=== PATIENT | male | born 1940 ===

== ENCOUNTER 2016-11-20 12:08 | Day surgery (SDC) | payer MEDICARE, OTHER ==
[2016-11-18 11:43] VITALS: BMI 31.6
[2016-11-20] MEDS ORDERED: Propofol 10 mg/ml Inj (20 ML) ONE (13:28)
[2016-11-20] MEDS ORDERED: Lactated Ringer's 1,000 ML IV SCH (13:57)
[2016-11-20] MEDS ORDERED: Sodium Chloride 0.9% 1,000 ML IV SCH (14:00)
[2016-11-20 15:20] VITALS: BP 143/78; PULSE 66; RESP 18; TEMP 97.6; O2SAT 99
== END 2016-11-20 15:30 | disposition short-term general hospital (02) ==
LOC: ENDO 12:08
PROVIDERS: ATTEND Internal Medicine Gastroenterology
DX: D50.9 Iron deficiency anemia, unspecified (principal); K57.30 Diverticulosis of large intestine without perforation or abscess without bleeding; K64.8 Other hemorrhoids; I10 Essential (primary) hypertension; E78.5 Hyperlipidemia, unspecified; M79.89 Other specified soft tissue disorders
CPT/HCPCS: 45378; J2704; J7040; J7120

== ENCOUNTER 2016-11-20 15:35 | Emergency (ER) | payer MEDICARE, OTHER ==
[2016-11-20 15:52] VITALS: BMI 30.6
[2016-11-20 16:08] VITALS: RESP 18; TEMP 98.2; O2SAT 99
--- NOTE | 2016-11-20 16:35 | ED PDOC ---
Arrival/HPI - General Historian: Patient - General Time Seen by Provider: 11/20/16 16:02 - History of Present Illness Narrative History of Present Illness (Text): 11/20/16 16:33 This is a 75Y M with PMH HTN, HLD, DVT, back surgery with residual L leg numbness/tingling here for R swollen leg. Patient was at colonoscopy with Dr. Price. He noticed the patient's leg was swollen and red and send him down to the ED. Patient was being evaluated with colonoscopy for anemia. Patient reports he has not noticed this leg being red. He denies CP, SOB, n/v/d, fever, chills, dysuria or hematuria. (Daphnie Temple) Past Medical History - Provider Review Nursing Documentation Reviewed: Yes - Infectious Disease Hx of Infectious Diseases: None - Tetanus Immunization Tetanus Immunization: Unknown - Cardiac Hx Pacemaker: No - Pulmonary Hx Respiratory Disorders: No - Neurological Hx Paralysis: No - HEENT Hx HEENT Disorder: Yes (WEARS RX GLASSES) - Renal Hx Renal Disorder: No - Endocrine/Metabolic Hx Endocrine Disorders: No - Hematological/Oncological Hx Blood Transfusions: No Hx Blood Transfusion Reaction: No - Integumentary Hx Dermatological Disorder: Yes (LEFT LATERAL UPPER SIDE NEAR ELBOW ABSCESS ) Other/Comment: 08-20-16 BILATERAL LE EDEMA +2,SHINY SKIN FLUSHED SKIN. - Musculoskeletal/Rheumatological Hx Musculoskeletal Disorders: Yes (LEFT FOOT HEEL SPUR) - Gastrointestinal Hx Gastrointestinal Disorders: Yes (CONSTIPATION,HEMORRHOIDS,RECTAL BLEED) - Genitourinary/Gynecological Hx Genitourinary Disorders: Yes Hx Prostate Problems: Yes (BPH) - Psychiatric Hx Emotional Abuse: No Hx Physical Abuse: No Hx Substance Use: No - Past Surgical History Past Surgical History: No Previous - Surgical History Other/Comment: BACK SX - Anesthesia Hx Anesthesia: Yes Hx Anesthesia Reactions: No Hx Malignant Hyperthermia: No - Suicidal Assessment Feels Threatened In Home Enviroment: No Family/Social History - Physician Review Nursing Documentation Reviewed: Yes Family/Social History: Hypertension Smoking Status: Never Smoked Hx Alcohol Use: No Hx Substance Use: No Hx Substance Use Treatment: No Allergies/Home Meds Allergies/Adverse Reactions: Allergies No Known Allergies Allergy (Verified 11/20/16 16:10) Home Medications: Home Meds Medication Instructions Recorded Confirmed Docusate [Colace LIQUID] 100 mg PO BID 05/04/14 11/20/16 Pantoprazole Sodium 40 mg PO DAILY 05/04/14 11/20/16 Naloxegol Oxalate [Movantik] 25 mg PO DAILY 11/18/16 11/20/16 Pregabalin [Lyrica] 75 mg PO TID 11/18/16 11/20/16 oxyCODONE [oxyCODONE Immediate 5 mg PO TID 11/18/16 11/20/16 Release Tab] Review of Systems - Physician Review All systems were reviewed & negative as marked: Yes - Review of Systems Constitutional: Normal. absent: Fevers Eyes: Normal. absent: Vision Changes ENT: Normal. absent: Hearing Changes Respiratory: Normal. absent: SOB, Cough Cardiovascular: Normal. absent: Chest Pain, Palpitations Gastrointestinal: Normal. absent: Abdominal Pain, Diarrhea, Nausea, Vomiting Genitourinary Male: Normal. absent: Dysuria, Frequency, Hematuria Musculoskeletal: Normal. absent: Arthralgias, Back Pain Skin: Other (erythema on R leg ). absent: Rash, Pruritis Neurological: Normal. absent: Headache, Dizziness, Focal Weakness Endocrine: Normal. absent: Diaphoresis Hemo/Lymphatic: Normal. absent: Easy Bleeding Psychiatric: Normal. absent: Anxiety, Depression Physical Exam Vital Signs Reviewed: Yes Temperature: Afebrile Blood Pressure: Normal Pulse: Regular Respiratory Rate: Normal Appearance: Positive for: Well-Appearing, Non-Toxic, Comfortable Pain Distress: None Mental Status: Positive for: Alert and Oriented X 3 - Systems Exam Head: Present: Atraumatic, Normocephalic Pupils: Present: PERRL Extroacular Muscles: Present: EOMI Conjunctiva: Present: Normal Mouth: Present: Moist Mucous Membranes Neck: Present: Normal Range of Motion Respiratory/Chest: Present: Clear to Auscultation, Good Air Exchange. No: Respiratory Distress, Accessory Muscle Use Cardiovascular: Present: Regular Rate and Rhythm, Normal S1, S2. No: Murmurs Abdomen: Present: Normal Bowel Sounds. No: Tenderness, Distention, Peritoneal Signs Back: Present: Normal Inspection Upper Extremity: Present: Normal Inspection. No: Cyanosis, Edema Lower Extremity: Present: Edema, Erythema (R leg ). No: Normal Inspection ( bilateral +3 edema ) Neurological: Present: GCS=15, CN II-XII Intact, Speech Normal. No: Normal Sensory Function Skin: Present: Warm, Dry, Normal Color. No: Rashes Psychiatric: Present: Alert, Oriented x 3, Normal Insight, Normal Concentration Vital Signs Temp Pulse Resp BP Pulse Ox 11/20/16 19:04 75 18 132/65 99 11/20/16 18:00 79 18 134/69 99 11/20/16 16:08 98.2 F 82 18 136/75 99 Medical Decision Making - Lab Interpretations I have reviewed the lab results: Yes Interpretation: No sign. chg./baseline - RAD Interpretation Clinical Data Specialist: Radiologist - EKG Interpretation Interpreted by ED Physician: Yes Type: 12 lead EKG ED Course and Treatment: 11/20/16 16:37 Impression: This is a 75Y M with PMH anemia, DVT, HLD, HTN and back surgery with residual L sided numbness/tingling here for R leg swelling and erythema noticed by Dr. Price during colonoscopy today. Differential Diagnosis included but are not limited to: DVT vs. cellulitis Plan: -- CBC, CMP, U/A, EKG -- Duplex U/S legs bilaterally -- Reassess and disposition Prior Visits: Notes and results from previous visits were reviewed. Progress Note: Labs showed chronic anemia. No DVT seen on U/S. Pt will be d/c home with antibiotics. 11/20/16 18:56 Re-evaluation: Discussed results and plan with patient. Patient understands results and is agreeable with plan. All questions answered. (Daphnie Temple) Patient Seen With Resident: In agreement with resident note which contains more details about the patient. Patient was seen and evaluated with resident. Came up with plan and treatment together. (Abhishek Mckeon DO) - Lab Interpretations Lab Results: 11/20/16 18:15 11/20/16 18:15 Lab Results 11/20/16 18:15: Sodium 140, Potassium 4.2, Chloride 105, Carbon Dioxide 27, Anion Gap 12, BUN 14, Creatinine 0.7, Est GFR ( Amer) > 60, Est GFR (Non- Af Amer) > 60, Random Glucose 120 H, Calcium 9.4, Total Bilirubin 0.4, AST 23, ALT 25, Alkaline Phosphatase 51, Total Protein 7.2, Albumin 4.0, Globulin 3.2, Albumin/Globulin Ratio 1.3 11/20/16 18:15: WBC 5.8, RBC 3.88, Hgb 8.9 L, Hct 29.8 L, MCV 76.8 L, MCH 22.9 L , MCHC 29.9 L, RDW 23.1 H, Plt Count 333, MPV 9.2 11/20/16 18:10: Urine Color Light yellow, Urine Appearance Clear, Urine pH 7.0, Ur Specific Palms 1.010, Urine Protein Negative, Urine Glucose (UA) Negative, Urine Ketones Negative, Urine Blood Negative, Urine Nitrate Negative, Urine Bilirubin Negative, Urine Urobilinogen 0.2, Ur Leukocyte Esterase Negative - RAD Interpretation Narrative RAD Interpretations (Text): 11/20/16 18:35 HISTORY: Leg pain and swelling. Evaluate for DVT PHYSICIAN(S): Celso Barry MD. TECHNIQUE: Duplex sonography and color-flow Doppler with graded compression were used to evaluate the deep venous systems of both lower extremities. The tibial veins are not well seen FINDINGS: The visualized deep venous systems of both lower extremities are sonographically normal and compressible. Normal wave forms and augmentation are seen. There is no sonographic evidence for deep venous thrombosis in the visualized segments of both lower extremities. IMPRESSION: No sonographic evidence for deep venous thrombosis in the visualized segments of both lower extremities. Limited study (Daphnie Temple) Radiology Orders: 11/20/16 16:12 DUPLEX LOWER EXTRM VEIN BILAT [US] Stat - Medication Orders Current Medication Orders: Discontinued Medications Oxycodone/Acetaminophen (Percocet 5/325 Mg Tab) 1 tab PO STAT STA Stop: 11/20/16 17:24 Last Admin: 11/20/16 19:26 Dose: Not Given Non-Admin Reason: Patient Refused Disposition/Present on Arrival - Present on Arrival Any Indicators Present on Arrival: No History of DVT/PE: Yes History of Uncontrolled Diabetes: No Urinary Catheter: No History of Decub. Ulcer: No History Surgical Site Infection Following: None - Disposition Have Diagnosis and Disposition been Completed?: Yes Disposition Time: 18:52 Patient Plan: Discharge - Disposition Diagnosis: Cellulitis Disposition: HOME/ ROUTINE Condition: FAIR Discharge Instructions (ExitCare): Cellulitis (ED) Print Language: TURKMEN Additional Instructions: Mr. Murray, thank you for letting us take care of you today. Your provider was Dr. Bortcosh. You were treated for R leg cellulitis. The emergency medical care you received today was directed at your acute symptoms. If you were prescribed any medication, please fill it and take as directed. It may take several days for your symptoms to resolve. Return to the Emergency Department if your symptoms worsen, do not improve, or if you have any other problems. Please contact your doctor or call one of the physicians/clinics you have been referred to that are listed on the Patient Visit Information form that is included in your discharge packet. Bring any paperwork you were given at discharge with you along with any medications you are taking to your follow up visit. Our treatment cannot replace ongoing medical care by a primary care provider (PCP) outside of the emergency department. Thank you for allowing the [facility] team to be part of your care today. Prescriptions: Cephalexin [cephalexin] 500 mg PO QID #20 cap Sulfamethoxazole/Trimethoprim [Bactrim DS 800 mg-160 mg] 1 tab PO BID #10 tab Referrals: Jim Kirk MD [Primary Care Provider] - Follow up with primary
[2016-11-20] MEDS ORDERED: Oxycodone/Acetaminophen 5/325 mg Tab PO STA (17:23)
[2016-11-20 18:28] LABS: URINE BILIRUBIN NEGATIVE (NEGATIVE); URINE BLOOD NEGATIVE (NEGATIVE); URINE GLUCOSE (UA) NEGATIVE (NEGATIVE); URINE KETONE NEGATIVE (NEGATIVE); URINE LEUKOCYTE ESTERASE NEGATIVE Leu/uL (NEGATIVE); URINE PROTEIN NEGATIVE mg/dL (<30 mg/dL); URINE UROBILINOGEN 0.2 E.U./dL (<1 E.U./dL)
[2016-11-20 18:28] LABS: HEMATOCRIT 29.8 % (42.0-52.0); MEAN CELL VOLUME 76.8 fL (80.0-105.0); MEAN CORPUSCULAR HEMOGLOBIN 22.9 pg (25.0-35.0); MEAN CORPUSCULAR HGB CONC 29.9 g/dl (31.0-37.0); MEAN PLATELET VOLUME 9.2 fl (7.0-11.0); RED CELL DISTRIBUTION WIDTH 23.1 % (11.5-14.5); WHITE BLOOD COUNT 5.8 10^3/ul (4.5-11.0)
--- NOTE | 2016-11-20 18:28 | US ---
HISTORY: Leg pain and swelling. Evaluate for DVT PHYSICIAN(S): Celso Barry MD. TECHNIQUE: Duplex sonography and color-flow Doppler with graded compression were used to evaluate the deep venous systems of both lower extremities. The tibial veins are not well seen FINDINGS: The visualized deep venous systems of both lower extremities are sonographically normal and compressible. Normal wave forms and augmentation are seen. There is no sonographic evidence for deep venous thrombosis in the visualized segments of both lower extremities. IMPRESSION: No sonographic evidence for deep venous thrombosis in the visualized segments of both lower extremities. Limited study
[2016-11-20 18:31] LABS: URINE APPEARANCE CLEAR (CLEAR); URINE COLOR LIGHT YELLOW (YELLOW)
[2016-11-20 18:38] LABS: ALB/GLOB RATIO 1.3 (1.1-1.8); ALKALINE PHOSPHATASE 51 U/L (38-133); ALT/SGPT 25 U/L (7-56); AST/SGOT 23 U/L (15-59); BILIRUBIN,TOTAL 0.4 mg/dL (0.2-1.3); BLOOD UREA NITROGEN 14 mg/dL (7-21); CALCIUM 9.4 mg/dL (8.4-10.5); CARBON DIOXIDE 27 mmol/L (21-33); CHLORIDE 105 mmol/L (98-107); GFR AFRICAN-AMERICAN > 60; GLUCOSE,RANDOM 120 mg/dL (70-110); POTASSIUM 4.2 mmol/L (3.6-5.0); SODIUM 140 mmol/L (132-148); TOTAL PROTEIN 7.2 g/dL (5.8-8.3)
[2016-11-20 19:04] VITALS: BP 132/65; PULSE 75
--- NOTE | 2016-11-21 14:12 | CARD ---
APPROVED REPORT EKG Measurement Heart [id number] MA 170P-1 [id number] <Conclusion> Normal sinus rhythm Left axis deviation Minimal voltage criteria for LVH, may be normal variant ST abnormality, possible digitalis effect Abnormal ECG
== END 2016-11-20 19:43 | disposition home or self-care (01) ==
LOC: ED 15:35
DX: L03.115 Cellulitis of right lower limb (principal); I10 Essential (primary) hypertension; Z86.718 Personal history of other venous thrombosis and embolism

== ENCOUNTER 2017-02-12 11:01 | Day surgery (SDC) | payer MEDICARE, OTHER ==
[2017-01-27 13:51] VITALS: BMI 31.6
[~2017-02-12 11:01] MED LIST: Sodium Chloride 0.9% 1,000 ML IV SCH
[2017-02-12] MEDS ORDERED: Propofol 10 mg/ml Inj (20 ML) ONE (11:46)
[2017-02-12 14:08] VITALS: BP 140/78; PULSE 63; RESP 16; TEMP 98; O2SAT 98
== END 2017-02-12 15:00 | disposition home or self-care (01) ==
LOC: ENDO 11:01
PROVIDERS: ATTEND Internal Medicine Gastroenterology
DX: C7A.010 Malignant carcinoid tumor of the duodenum (principal); K44.9 Diaphragmatic hernia without obstruction or gangrene; R13.10 Dysphagia, unspecified; I10 Essential (primary) hypertension; M48.00 Spinal stenosis, site unspecified
CPT/HCPCS: 43235; J2001; J2704; J3010; J7040 ×2

== ENCOUNTER 2018-10-18 15:01 | Inpatient (IN) | payer OTHER ==
[2018-10-18 15:02] VITALS: BMI 29.9
--- NOTE | 2018-10-18 15:52 | ED PDOC ---
Arrival/HPI - General Chief Complaint: Shortness Of Breath Time Seen by Provider: 10/18/18 15:16 Historian: Patient - History of Present Illness Narrative History of Present Illness (Text): 10/18/18 15:49 77 year old male, whose past medical history includes anemia, HTN, HLD, DVT, back surgery with residual L leg numbness/tingling presents to the emergency department complaining shortness of breath on exertion for the past 5-6 days. Patient reports he is fine when sitting, but when he moves around he begins becoming short of breath. Patient reports he was anxious and took Oxycodone, Lidocaine, and Tramadol 2 hours prior to arrival. Patient denies any fevers, chills, chest pain, abdominal pain, nausea, vomiting, diarrhea, back pain, neck pain, headache, dizziness, or any other complaint. PMD: Dr. Kirk Time/Duration: Other (5-6 days) Symptom Onset: Gradual Symptom Course: Unchanged Activities at Onset: Light Context: Home Past Medical History - Provider Review Nursing Documentation Reviewed: Yes - Infectious Disease Hx of Infectious Diseases: None - Tetanus Immunization Tetanus Immunization: Unknown - Cardiac Hx Pacemaker: No - Pulmonary Hx Respiratory Disorders: No - Neurological Hx Paralysis: No - HEENT Hx HEENT Disorder: Yes (WEARS RX GLASSES) - Renal Hx Renal Disorder: No - Endocrine/Metabolic Hx Endocrine Disorders: No - Hematological/Oncological Hx Blood Transfusions: No - Integumentary Hx Dermatological Disorder: Yes (LEFT LATERAL UPPER SIDE NEAR ELBOW ABSCESS 04-16-14) Other/Comment: 08-20-16 BILATERAL LE EDEMA +2,SHINY SKIN FLUSHED SKIN. - Musculoskeletal/Rheumatological Hx Musculoskeletal Disorders: Yes (LEFT FOOT HEEL SPUR) - Gastrointestinal Hx Gastrointestinal Disorders: Yes (CONSTIPATION,HEMORRHOIDS,RECTAL BLEED) - Genitourinary/Gynecological Hx Genitourinary Disorders: Yes Hx Prostate Problems: Yes (BPH) - Psychiatric Hx Emotional Abuse: No Hx Physical Abuse: No Hx Substance Use: No - Past Surgical History Past Surgical History: No Previous - Surgical History Other/Comment: BACK SX - Anesthesia Hx Anesthesia Reactions: No Hx Malignant Hyperthermia: No - Suicidal Assessment Feels Threatened In Home Enviroment: No Family/Social History - Physician Review Nursing Documentation Reviewed: Yes Family/Social History: No Known Family HX Smoking Status: Never Smoked Hx Alcohol Use: No Hx Substance Use: No Hx Substance Use Treatment: No Allergies/Home Meds Allergies/Adverse Reactions: Allergies No Known Allergies Allergy (Verified 11/20/16 16:10) Home Medications: Home Meds Medication Instructions Recorded Confirmed Pregabalin [Lyrica] 150 mg PO TID 11/18/16 10/19/18 oxyCODONE [oxyCODONE Immediate 10 mg PO TID 11/18/16 10/18/18 Release Tab] Furosemide [Lasix] 20 mg PO QOTHERDAY 08/18/17 10/18/18 Dutasteride [Avodart] 0.5 mg PO DAILY 10/18/18 10/18/18 Hydroxyzine HCl 25 mg PO DAILY 10/18/18 10/18/18 Lidocaine 5% [Lidoderm] 5 TP 10/18/18 Lubiprostone [Amitiza] 24 mcg PO DAILY 10/18/18 10/18/18 amLODIPine [Norvasc] 2.5 mg PO DAILY 10/18/18 10/18/18 Review of Systems - Physician Review All systems were reviewed & negative as marked: Yes - Review of Systems Constitutional: absent: Fevers, Other (chills) Respiratory: SOB Cardiovascular: absent: Chest Pain Gastrointestinal: absent: Abdominal Pain, Diarrhea, Nausea, Vomiting Genitourinary Male: absent: Dysuria, Frequency, Hematuria Musculoskeletal: absent: Back Pain, Neck Pain Neurological: absent: Headache, Dizziness, Other (saddle anesthia ) Physical Exam Vital Signs Reviewed: Yes Vital Signs Temp Pulse Resp BP Pulse Ox 10/18/18 15:15 98.4 F 88 20 106/54 L 95 Temperature: Afebrile Blood Pressure: Hypotensive Pulse: Regular Respiratory Rate: Normal Appearance: Positive for: Well-Appearing, Non-Toxic, Comfortable Pain Distress: None Mental Status: Positive for: Alert and Oriented X 3 - Systems Exam Head: Present: Atraumatic, Normocephalic Pupils: Present: PERRL Extroacular Muscles: Present: EOMI Conjunctiva: Present: Normal Mouth: Present: Moist Mucous Membranes Neck: Present: Normal Range of Motion Respiratory/Chest: Present: Clear to Auscultation, Good Air Exchange. No: Respiratory Distress, Accessory Muscle Use Cardiovascular: Present: Regular Rate and Rhythm, Murmurs (systolic murmur), Normal S1, S2 Abdomen: No: Tenderness, Distention, Peritoneal Signs Back: Present: Normal Inspection Upper Extremity: Present: Normal Inspection. No: Cyanosis, Edema Lower Extremity: Present: Edema (bilateral LE ), Erythema (to the distal right leg (normal)) Neurological: Present: GCS=15, CN II-XII Intact, Speech Normal Skin: Present: Warm, Dry, Normal Color. No: Rashes Psychiatric: Present: Alert, Oriented x 3, Normal Insight, Normal Concentration Medical Decision Making ED Course and Treatment: 10/18/18 15:45 Impression: 77 year old male presents complaining of dyspnea on exertion for the past 5-6 days. Plan: -- EKG -- Labs -- CXR -- reassess and dispo Prior Visits: Notes and results from previous visits were reviewed. Progress Notes: EKG shows NSR 90BPM with no LAD, No ST elevations, PACs. No significant changes changes on 11/20/16. As read by me. Chest X-ray Dictator : Blayne Harry MD Report Date : 10/18/2018 16:32:28 IMPRESSION: No active disease. Results of w/u and plan to admit d/w patient. Patient agreeable w/POC and provided written consent for blood transfusion. 10/18/18 18:50 Rectal Exam: Brown stool. Guaiac negative. [id number] EXP 05/1610/18/18 18:[address] Kirk who is aware and agrees with the plan. Accepts patient into his service and request Dr. Treadwell and GI Dr. Price for consult. - Lab Interpretations I have reviewed the lab results: Yes - RAD Interpretation Radiology Orders: 10/18/18 15:47 CHEST PORTABLE [RAD] Stat Interventional Sale Consultant: Radiologist - EKG Interpretation Interpreted by ED Physician: Yes Type: 12 lead EKG - Scribe Statement The provider has reviewed the documentation as recorded by the Sherri Bahena Provider Scribe Attestation: All medical record entries made by the Scribe were at my direction and personally dictated by me. I have reviewed the chart and agree that the record accurately reflects my personal performance of the history, physical exam, medical decision making, and the department course for this patient. I have also personally directed, reviewed, and agree with the discharge instructions and disposition. Disposition/Present on Arrival - Present on Arrival Any Indicators Present on Arrival: Yes History of DVT/PE: Yes History of Uncontrolled Diabetes: No Urinary Catheter: No History of Decub. Ulcer: No History Surgical Site Infection Following: None - Disposition Have Diagnosis and Disposition been Completed?: Yes Diagnosis: Anemia, STRANGE (dyspnea on exertion) Disposition: HOSPITALIZED Disposition Time: 18:16 Patient Plan: Admission Condition: STABLE
--- NOTE | 2018-10-18 16:35 | RAD ---
Date of service: 10/18/2018 HISTORY: STRANGE COMPARISON: 08/20/2016 TECHNIQUE: 1 view obtained. FINDINGS: LUNGS: No active pulmonary disease. PLEURA: No significant pleural effusion identified, no pneumothorax apparent. CARDIOVASCULAR: Aortic calcification Mild cardiomegaly no pulmonary vascular congestion. OSSEOUS STRUCTURES: No significant abnormalities. VISUALIZED UPPER ABDOMEN: Normal. OTHER FINDINGS: None. IMPRESSION: No active disease.
[2018-10-18 17:12] LABS: BASO # 0.03 K/mm3 (0.0-2.0); BASO % 0.5 % (0.0-3.0); EOS # 0.2 (0.0-0.7); EOS % 2.9 % (1.5-5.0); LYMPH # 1.6 (1.2-3.4); LYMPH % 26.1 % (22.0-35.0); MEAN CELL VOLUME 60.1 fl (80.0-105.0); MEAN CORPUSCULAR HEMOGLOBIN 14.4 pg (25.0-35.0); MEAN CORPUSCULAR HGB CONC 23.9 g/dl (31.0-37.0); MEAN PLATELET VOLUME 9.4 fl (7.0-11.0); MONO # 0.9 (0.1-0.6); MONO % 14.3 % (1.0-6.0); RBC 3.48 10^6/uL (3.5-6.1); RED CELL DISTRIBUTION WIDTH 20.7 % (11.5-14.5); WHITE BLOOD COUNT 6.2 10^3/uL (4.5-11.0)
[2018-10-18 17:20] LABS: BLOOD UREA NITROGEN 17 mg/dL (7-21); CALCIUM 8.6 mg/dL (8.4-10.5); GFR NON-AFRICAN AMERICAN > 60
[2018-10-18 17:31] LABS: B-TYPE NATRIURETIC PEPTIDE 321 pg/mL (0-450); TROPONIN I < 0.01 ng/mL
--- NOTE | 2018-10-18 18:15 | CARD ---
APPROVED REPORT Date of service: 10/18/2018 EKG Measurement Heart [id number] <Conclusion> Sinus rhythm with premature atrial complexes with aberrant conduction Left anterior hemi_Block Non Specific ST-T Changes. Abnormal ECG
[2018-10-18] MEDS: oxyCODONE 10 mg Immediate Release Tab PO SCH (23:46)
[2018-10-19 06:45] LABS: MEAN CELL VOLUME 64.2 fl (80.0-105.0); MEAN CORPUSCULAR HEMOGLOBIN 17.5 pg (25.0-35.0); MEAN CORPUSCULAR HGB CONC 27.2 g/dl (31.0-37.0); MEAN PLATELET VOLUME 9.1 fl (7.0-11.0); RBC 3.72 10^6/uL (3.5-6.1); WHITE BLOOD COUNT 5.5 10^3/uL (4.5-11.0)
[2018-10-19] MEDS: oxyCODONE 10 mg Immediate Release Tab PO SCH ×3 (06:52→22:30)
[2018-10-19 06:56] LABS: HEMOGLOBIN 6.5 g/dL (14.0-18.0)
--- NOTE | 2018-10-19 09:23 | CP.PCM.CON ---
<Surya Beltrán - Last Filed: 10/19/18 14:46> History of Present Illness - History of Present Illness History of Present Illness: Surya Beltrán PGY2 Heme/Onc Consult Note for Dr. 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 Patient states for the last several days he has felt shortness of breath when ambulating. Patient denies any blood in the stool at home or recent travel. Says he feels better today. Heme/Onc Consulted for history of carcinoid and anemia. He also denies heavy NSAID use. Denies chest pain, abdominal pain, nausea, vomiting, fever, chills but states he had a bowel movement with bright red blood today. PMHx: above PSx: back sx 2013 Soc: denies ETOH, Drugs, 20yr hx of second hand smoke exposure Allergies: denies Home Meds: as per AUG PMD: Yelena Review of Systems - Review of Systems Review of Systems: Negative except that which is mentioned in HPI Past Patient History - Infectious Disease Hx of Infectious Diseases: None - Tetanus Immunizations Tetanus Immunization: Unknown - Past Medical History & Family History Past Medical History?: Yes - Past Social History Smoking Status: Never Smoked - CARDIAC Hx Cardiac Disorders: Yes Hx Cardia Arrhythmia: Yes Hx Hypercholesterolemia: Yes Hx Hypertension: Yes Hx Pacemaker: No Hx Peripheral Vascular Disease: Yes - PULMONARY Hx Respiratory Disorders: No - NEUROLOGICAL Hx Neurological Disorder: Yes Other/Comment: PARESTHESIA TO BILATERAL LE,LEFT FOOT HEEL SPUR. MULTIPLE EPIDURALS - HEENT Hx HEENT Problems: Yes (WEARS RX GLASSES) - RENAL Hx Chronic Kidney Disease: No - ENDOCRINE/METABOLIC Hx Endocrine Disorders: No - HEMATOLOGICAL/ONCOLOGICAL Hx Blood Disorders: Yes Hx Anemia: Yes (tranfusion) - INTEGUMENTARY Hx Dermatological Problems: Yes Other/Comment: BILATERAL LE EDEMA +2,SHINY SKIN FLUSHED SKIN. - MUSCULOSKELETAL/RHEUMATOLOGICAL Hx Back Pain: Yes Hx Degenerative Joint Disease: Yes Hx Falls: No Hx Herniated Disk: Yes Hx Spinal Stenosis: Yes Other/Comment: recent back surgery - GASTROINTESTINAL Hx Gastrointestinal Disorders: Yes (CONSTIPATION,HEMORRHOIDS,RECTAL BLEED) - GENITOURINARY/GYNECOLOGICAL Hx Genitourinary Disorders: Yes Hx Prostate Problems: Yes (BPH) - PSYCHIATRIC Hx Emotional Abuse: No Hx Physical Abuse: No Hx Substance Use: No - SURGICAL HISTORY Other/Comment: BACK SX - ANESTHESIA Hx Anesthesia Reactions: No Hx Malignant Hyperthermia: No Meds Allergies/Adverse Reactions: Allergies Allergy/AdvReac Type Severity Reaction Status Date / Time No Known Allergies Allergy Verified 11/20/16 16:10 - Medications Medications: Current Medications Amlodipine Besylate (Norvasc) 2.5 mg PO DAILY [facility] Finasteride (Proscar) 5 mg PO DAILY [facility] Furosemide (Lasix) 20 mg PO QOTHERDAY [facility] Home Med (Home Med) 1 unit PO DAILY [facility] Home Med (Home Med) 1 unit PO DAILY [facility] Hydroxyzine HCl (Atarax) 25 mg PO DAILY [facility] Lidocaine (Lidoderm) 1 ea TD DAILY [facility] Oxycodone HCl (Oxycodone Immediate Release Tab) 10 mg PO Q8H [facility] Last Admin: 10/19/18 06:52 Dose: 10 mg Pantoprazole Sodium (Protonix Inj) 40 mg IVP DAILY [facility] Pregabalin (Lyrica) 75 mg PO TID [facility] Last Admin: 10/19/18 00:12 Dose: 75 mg Tamsulosin HCl (Flomax) 0.4 mg PO DAILY [facility] Tramadol HCl (Ultram) 50 mg PO TID PRN PRN Reason: Pain, moderate (4-7) Physical Exam - Constitutional Appears: Non-toxic, No Acute Distress - Eye Exam Eye Exam: EOMI, Normal appearance - ENT Exam ENT Exam: Mucous Membranes Moist - Respiratory Exam Respiratory Exam: Clear to Auscultation Bilateral, NORMAL BREATHING PATTERN - Cardiovascular Exam Cardiovascular Exam: +S1, +S2 - GI/Abdominal Exam GI & Abdominal Exam: Normal Bowel Sounds. absent: Tenderness - Extremities Exam Extremities exam: Positive for: pedal pulses present. Negative for: joint swelling - Neurological Exam Neurological exam: Alert, Oriented x3 Results - Vital Signs Recent Vital Signs: Last Vital Signs Temp 98.4 F 10/19/18 05:14 Pulse 98 H 10/19/18 05:14 Resp 20 10/19/18 05:14 BP 126/64 10/19/18 05:14 Pulse Ox 99 10/18/18 20:12 - Labs Result Diagrams: 10/19/18 12:45 10/19/18 06:30 Labs: Laboratory Results - last 24 hr 10/18/18 10/18/18 10/18/18 16:38 16:38 18:49 WBC 6.2 RBC 3.48 L Hgb 5.0 L* D Hct 20.9 L* MCV 60.1 L D MCH 14.4 L MCHC 23.9 L RDW 20.7 H Plt Count 405 MPV 9.4 Neut % (Auto) 56.2 Lymph % (Auto) 26.1 [place] % (Auto) 14.3 H Eos % (Auto) 2.9 Baso % (Auto) 0.5 Lymph # (Auto) 1.6 [place] # (Auto) 0.9 H Eos # (Auto) 0.2 Baso # (Auto) 0.03 Absolute Neuts (auto) 3.47 Sodium 139 Potassium 4.5 Chloride 105 Carbon Dioxide 23 Anion Gap 15 BUN 17 Creatinine 0.7 L Est GFR ( Amer) > 60 Est GFR (Non-Af Amer) > 60 Random Glucose 96 Calcium 8.6 Magnesium 1.9 Lactate Dehydrogenase 319 L Total Creatine Kinase 48 Troponin I < 0.01 NT-Pro-B Natriuret Pep 321 Blood Type A NEGATIVE Antibody Screen Negative Crossmatch See Detail BBK History Checked Patient has bt 10/19/18 06:10 WBC 5.5 RBC 3.72 Hgb 6.5 L* Hct 23.9 L MCV 64.2 L D MCH 17.5 L MCHC 27.2 L RDW 25.0 H Plt Count 349 MPV 9.1 Neut % (Auto) Lymph % (Auto) [place] % (Auto) Eos % (Auto) Baso % (Auto) Lymph # (Auto) [place] # (Auto) Eos # (Auto) Baso # (Auto) Absolute Neuts (auto) Sodium Potassium Chloride Carbon Dioxide Anion Gap BUN Creatinine Est GFR ( Amer) Est GFR (Non-Af Amer) Random Glucose Calcium Magnesium Lactate Dehydrogenase Total Creatine Kinase Troponin I NT-Pro-B Natriuret Pep Blood Type Antibody Screen Crossmatch BBK History Checked Assessment & Plan - Assessment and Plan (Free Text) Plan: Anemia with history for carcinoid -Hgb of 5.0 on admission -s/p 2 units PRBC, with plan for 2 more to be transfused -fibrinogen, fibrin split products pending -5-HIAA and tumor markers -Octreotide Scan -CT ChestAbdPelvis pending -GI consulted, follow recs -Monitor H&H, transfuse as needed <Sindy Treadwell P - Last Filed: 10/22/18 12:29> Meds - Medications Medications: Current Medications Amlodipine Besylate (Norvasc) 2.5 mg PO DAILY [facility] Last Admin: 10/22/18 11:06 Dose: 2.5 mg Finasteride (Proscar) 5 mg PO DAILY [facility] Last Admin: 10/22/18 11:06 Dose: 5 mg Furosemide (Lasix) 20 mg PO QOTHERDAY [facility] Last Admin: 10/22/18 11:06 Dose: 20 mg Home Med (Home Med) 1 unit PO DAILY [facility] Last Admin: 10/21/18 10:06 Dose: Not Given Home Med (Home Med) 1 unit PO DAILY [facility] Last Admin: 10/21/18 10:06 Dose: Not Given Hydroxyzine HCl (Atarax) 25 mg PO DAILY [facility] Last Admin: 10/21/18 11:11 Dose: Not Given Lidocaine (Lidoderm) 1 ea TD DAILY [facility] Last Admin: 10/22/18 11:05 Dose: 1 ea Ondansetron HCl (Zofran Inj) 4 mg IVP Q6H PRN PRN Reason: Nausea/Vomiting Oxycodone HCl (Oxycodone Immediate Release Tab) 10 mg PO Q8H [facility] Last Admin: 10/22/18 06:22 Dose: 10 mg Pantoprazole Sodium (Protonix Inj) 40 mg IVP Q12 [facility] Last Admin: 10/21/18 22:27 Dose: 40 mg Pregabalin (Lyrica) 150 mg PO TID [facility] Last Admin: 10/22/18 11:05 Dose: 150 mg Tamsulosin HCl (Flomax) 0.4 mg PO DAILY [facility] Last Admin: 10/22/18 11:06 Dose: 0.4 mg Tramadol HCl (Ultram) 50 mg PO TID PRN PRN Reason: Pain, moderate (4-7) Last Admin: 10/22/18 02:00 Dose: 50 mg Results - Vital Signs Recent Vital Signs: Last Vital Signs Temp 98 F 10/22/18 06:00 Pulse 90 10/22/18 06:00 Resp 20 10/22/18 06:00 BP 142/68 10/22/18 11:06 Pulse Ox 93 L 10/22/18 06:00 - Labs Result Diagrams: 10/21/18 11:00 10/21/18 11:00 Attending/Attestation - Attestation I have personally seen and examined this patient.: Yes I have fully participated in the care of the patient.: Yes I have reviewed all pertinent clinical information: Yes
[2018-10-19 09:29] LABS: BLOOD UREA NITROGEN 16 mg/dL (7-21); CALCIUM 8.2 mg/dL (8.4-10.5); GFR NON-AFRICAN AMERICAN > 60
[2018-10-19] MEDS ORDERED: Home Med 1 UNIT PO SCH (10:00)
[2018-10-19] MEDS: Lidocaine 5% Patch TD SCH (11:00)
--- NOTE | 2018-10-19 11:47 | CP.PCM.CON ---
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 Pt has been having STRANGE for the past 8 days. Pt reports having had chronic anemia with Hg reading in the 9s and 8s, but was found to have a Hg of [address] Kirk[address] office, prompting him to be admitted and transfused 2u of PRBCs. Pt is feeling better today since the transfusions, no longer dysnpic/fatigued. 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 Octreotide Scan: Neg 2017 EGD: 15mm Duodenal bulb mass 2017 Colonoscopy: hemorrhoids, diverticulosis ROS: Pos+ SOB, STRANGE, back pain (chronic), leg swelling (chronic), LE numbness (chronic) Neg- CP, FC, NV, weight changes, night sweats, early satiety, flushing, tremors, syncope, falls, diarrhea, non compliance, prev abd sx, denies NSAIDs PMHx: above PSx: back sx 2013 Soc: denies ETOH, Drugs, 20yr hx of second hand smoke exposure Allergies: denies Home Rx: Lyrica 150 Percocet 10 Tramadol 100 Recently stopped ASA 81 Flomax Prostat PMD: Yelena, GI: Dee, Heme: Eben Son is Physician, proxy Review of Systems - Review of Systems All systems: reviewed and no additional remarkable complaints except (as per HPI) Past Patient History - Infectious Disease Hx of Infectious Diseases: None - Tetanus Immunizations Tetanus Immunization: Unknown - Past Medical History & Family History Past Medical History?: Yes - Past Social History Smoking Status: Never Smoked - CARDIAC Hx Cardiac Disorders: Yes Hx Cardia Arrhythmia: Yes Hx Hypercholesterolemia: Yes Hx Hypertension: Yes Hx Pacemaker: No Hx Peripheral Vascular Disease: Yes - PULMONARY Hx Respiratory Disorders: No - NEUROLOGICAL Hx Neurological Disorder: Yes Other/Comment: PARESTHESIA TO BILATERAL LE,LEFT FOOT HEEL SPUR. MULTIPLE EPIDURALS - HEENT Hx HEENT Problems: Yes (WEARS RX GLASSES) - RENAL Hx Chronic Kidney Disease: No - ENDOCRINE/METABOLIC Hx Endocrine Disorders: No - HEMATOLOGICAL/ONCOLOGICAL Hx Blood Disorders: Yes Hx Anemia: Yes (tranfusion) - INTEGUMENTARY Hx Dermatological Problems: Yes Other/Comment: BILATERAL LE EDEMA +2,SHINY SKIN FLUSHED SKIN. - MUSCULOSKELETAL/RHEUMATOLOGICAL Hx Back Pain: Yes Hx Degenerative Joint Disease: Yes Hx Falls: No Hx Herniated Disk: Yes Hx Spinal Stenosis: Yes Other/Comment: recent back surgery - GASTROINTESTINAL Hx Gastrointestinal Disorders: Yes (CONSTIPATION,HEMORRHOIDS,RECTAL BLEED) - GENITOURINARY/GYNECOLOGICAL Hx Genitourinary Disorders: Yes Hx Prostate Problems: Yes (BPH) - PSYCHIATRIC Hx Emotional Abuse: No Hx Physical Abuse: No Hx Substance Use: No - SURGICAL HISTORY Other/Comment: BACK SX - ANESTHESIA Hx Anesthesia Reactions: No Hx Malignant Hyperthermia: No Meds Allergies/Adverse Reactions: Allergies Allergy/AdvReac Type Severity Reaction Status Date / Time No Known Allergies Allergy Verified 11/20/16 16:10 - Medications Medications: Current Medications Amlodipine Besylate (Norvasc) 2.[address] [facility] Last Admin: 10/19/18 10:59 Dose: 2.5 mg Finasteride (Proscar) [address] [facility] Last Admin: 10/19/18 10:59 Dose: 5 mg Furosemide (Lasix) [address] [facility] Home Med (Home Med) [address] [facility] Home Med (Home Med) [address] [facility] Hydroxyzine HCl (Atarax) [address] [facility] Last Admin: 10/19/18 10:59 Dose: 25 mg Lidocaine (Lidoderm) [address] [facility] Last Admin: 10/19/18 11:00 Dose: Not Given Oxycodone HCl (Oxycodone Immediate Release Tab) [address] [facility] Last Admin: 10/19/18 06:52 Dose: 10 mg Pantoprazole Sodium (Protonix Inj) [address] [facility] Last Admin: 10/19/18 11:00 Dose: 40 mg Pregabalin (Lyrica) [address] [facility] Last Admin: 10/19/18 10:59 Dose: 75 mg Tamsulosin HCl (Flomax) 0.4 mg PO DAILY [facility] Last Admin: 10/19/18 10:59 Dose: 0.4 mg Tramadol HCl (Ultram) 50 mg PO TID PRN PRN Reason: Pain, moderate (4-7) Physical Exam - Constitutional Appears: Non-toxic, No Acute Distress - Head Exam Head Exam: ATRAUMATIC, NORMOCEPHALIC - Eye Exam Eye Exam: EOMI, Normal appearance. absent: Scleral icterus Additional comments: conjuctiva pale - ENT Exam ENT Exam: Mucous Membranes Moist - Respiratory Exam Respiratory Exam: Clear to Auscultation Bilateral. absent: Rales, Wheezes - Cardiovascular Exam Cardiovascular Exam: +S1, +S2, Systolic Murmur () - GI/Abdominal Exam GI & Abdominal Exam: Soft (obese abdomen, no surgical scars seen, no ventral/umbilical hernias appreciated). absent: Firm, Guarding, Organomegaly, Rebound, Tenderness - Extremities Exam Extremities exam: Positive for: normal capillary refill, pedal edema (+2 to proximal gates), pedal pulses present. Negative for: full ROM (knees limited in flexion) - Back Exam Back exam: absent: CVA tenderness (L), CVA tenderness (R), tenderness - Neurological Exam Neurological exam: Alert, Oriented x3 - Psychiatric Exam Psychiatric exam: Normal Affect, Normal Mood - Skin Skin Exam: Normal Color, Warm Results - Vital Signs Recent Vital Signs: Last Vital Signs Temp 98.4 F 10/19/18 05:14 Pulse 98 H 10/19/18 05:14 Resp 20 10/19/18 05:14 BP 126/64 10/19/18 10:59 Pulse Ox 99 10/18/18 20:12 - Labs Result Diagrams: 10/19/18 06:10 10/19/18 06:30 Labs: Laboratory Results - last 24 hr 10/18/18 10/18/18 10/18/18 16:38 16:38 18:49 WBC 6.2 RBC 3.48 L Hgb 5.0 L* D Hct 20.9 L* MCV 60.1 L D MCH 14.4 L MCHC 23.9 L RDW 20.7 H Plt Count 405 MPV 9.4 Neut % (Auto) 56.2 Lymph % (Auto) 26.1 [place] % (Auto) 14.3 H Eos % (Auto) 2.9 Baso % (Auto) 0.5 Lymph # (Auto) 1.6 [place] # (Auto) 0.9 H Eos # (Auto) 0.2 Baso # (Auto) 0.03 Absolute Neuts (auto) 3.47 Sodium 139 Potassium 4.5 Chloride 105 Carbon Dioxide 23 Anion Gap 15 BUN 17 Creatinine 0.7 L Est GFR ( Amer) > 60 Est GFR (Non-Af Amer) > 60 Random Glucose 96 Calcium 8.6 Magnesium 1.9 Lactate Dehydrogenase 319 L Total Creatine Kinase 48 Troponin I < 0.01 NT-Pro-B Natriuret Pep 321 Blood Type A NEGATIVE Antibody Screen Negative Crossmatch See Detail BBK History Checked Patient has bt 10/19/18 10/19/18 06:10 06:30 WBC 5.5 RBC 3.72 Hgb 6.5 L* Hct 23.9 L MCV 64.2 L D MCH 17.5 L MCHC 27.2 L RDW 25.0 H Plt Count 349 MPV 9.1 Neut % (Auto) Lymph % (Auto) [place] % (Auto) Eos % (Auto) Baso % (Auto) Lymph # (Auto) [place] # (Auto) Eos # (Auto) Baso # (Auto) Absolute Neuts (auto) Sodium 139 Potassium 4.2 Chloride 105 Carbon Dioxide 26 Anion Gap 12 BUN 16 Creatinine 0.7 L Est GFR ( Amer) > 60 Est GFR (Non-Af Amer) > 60 Random Glucose 79 Calcium 8.2 L Magnesium Lactate Dehydrogenase Total Creatine Kinase Troponin I NT-Pro-B Natriuret Pep Blood Type Antibody Screen Crossmatch BBK History Checked Assessment & Plan - Assessment and Plan (Free Text) Assessment: 77M pmhx of 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 Plan: Carcinoid Tumor- duodenal bulb -f/u 5-HIAA and tumor markers -f/u Octreotide Scan -f/u CT ChestAbdPelv: eval for mets -f/u GI Recs: recommending EGD for reassessment of tumor -Monitor H&H, transfuse as recommended by HemeOnc [facility] PGY1 d/w Dr Oliveira
[2018-10-19] MEDS ORDERED: Barium Sulfate Susp 2.1% w/v, 2.0% w/w 450 mL Bottle PO ONE (12:14)
[2018-10-19 13:09] LABS: MEAN CELL VOLUME 64.2 fl (80.0-105.0); MEAN CORPUSCULAR HEMOGLOBIN 17.3 pg (25.0-35.0); MEAN CORPUSCULAR HGB CONC 26.9 g/dl (31.0-37.0); MEAN PLATELET VOLUME 9.4 fl (7.0-11.0); RBC 3.88 10^6/uL (3.5-6.1); RED CELL DISTRIBUTION WIDTH 24.9 % (11.5-14.5); WHITE BLOOD COUNT 6.1 10^3/uL (4.5-11.0)
[2018-10-19 13:29] LABS: HEMOGLOBIN 6.7 g/dL (14.0-18.0)
[2018-10-19] MEDS: AMITIZA 24 MG PO SCH (16:05)
[2018-10-19] MEDS: AVODART 0.5 MG PO SCH (16:06)
--- NOTE | 2018-10-19 16:17 | CP.PCM.CON ---
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 He states over the last several days he has had progressively worse shortness of breath with exertion. He states he is in his normal state of health when he is not exerting self. He denies any weight loss, dysphagia, chest pain, melena, abdominal pain nor hematochezia. He denies any alcohol use nor blood thinner use.he states he is intermittently constipated sometimes going 3-4 days without a bowel movement. However, he states his last movement was earlier this morning and was formed brown without any signs of bleeding. 12 point review of systems negative other than stated above Medical history: See above Surgical history:IVC filter, back surgery (complicated by residual left-sided numbness/tingling) Medications: Reviewed in chart Family history: Sister with breast cancer Social history: Denied 3 Allergies: No known drug allergies EGD 02/12/17 small hiatal hernia, submucosal ulcerated mass in the bulb previous biopsies of the area positive for well-differentiated neuroendocrine tumor Colonoscopy 11/20/16: Diverticulosis and internal hemorrhoids Past Patient History - Infectious Disease Hx of Infectious Diseases: None - Tetanus Immunizations Tetanus Immunization: Unknown - Past Medical History & Family History Past Medical History?: Yes - Past Social History Smoking Status: Never Smoked - CARDIAC Hx Cardiac Disorders: Yes Hx Cardia Arrhythmia: Yes Hx Hypercholesterolemia: Yes Hx Hypertension: Yes Hx Pacemaker: No Hx Peripheral Vascular Disease: Yes - PULMONARY Hx Respiratory Disorders: No - NEUROLOGICAL Hx Neurological Disorder: Yes Other/Comment: PARESTHESIA TO BILATERAL LE,LEFT FOOT HEEL SPUR. MULTIPLE EPIDURALS - HEENT Hx HEENT Problems: Yes (WEARS RX GLASSES) - RENAL Hx Chronic Kidney Disease: No - ENDOCRINE/METABOLIC Hx Endocrine Disorders: No - HEMATOLOGICAL/ONCOLOGICAL Hx Blood Disorders: Yes Hx Anemia: Yes (tranfusion) - INTEGUMENTARY Hx Dermatological Problems: Yes Other/Comment: BILATERAL LE EDEMA +2,SHINY SKIN FLUSHED SKIN. - MUSCULOSKELETAL/RHEUMATOLOGICAL Hx Back Pain: Yes Hx Degenerative Joint Disease: Yes Hx Falls: No Hx Herniated Disk: Yes Hx Spinal Stenosis: Yes Other/Comment: recent back surgery - GASTROINTESTINAL Hx Gastrointestinal Disorders: Yes (CONSTIPATION,HEMORRHOIDS,RECTAL BLEED) - GENITOURINARY/GYNECOLOGICAL Hx Genitourinary Disorders: Yes Hx Prostate Problems: Yes (BPH) - PSYCHIATRIC Hx Emotional Abuse: No Hx Physical Abuse: No Hx Substance Use: No - SURGICAL HISTORY Other/Comment: BACK SX - ANESTHESIA Hx Anesthesia Reactions: No Hx Malignant Hyperthermia: No Meds Allergies/Adverse Reactions: Allergies Allergy/AdvReac Type Severity Reaction Status Date / Time No Known Allergies Allergy Verified 11/20/16 16:10 - Medications Medications: Current Medications Amlodipine Besylate (Norvasc) 2.5 mg PO DAILY [facility] Last Admin: 10/19/18 10:59 Dose: 2.5 mg Finasteride (Proscar) 5 mg PO DAILY [facility] Last Admin: 10/19/18 10:59 Dose: 5 mg Furosemide (Lasix) 20 mg PO QOTHERDAY [facility] Home Med (Home Med) 1 unit PO DAILY [facility] Last Admin: 10/19/18 16:06 Dose: Not Given Home Med (Home Med) 1 unit PO DAILY [facility] Last Admin: 10/19/18 16:05 Dose: Not Given Hydroxyzine HCl (Atarax) 25 mg PO DAILY [facility] Last Admin: 10/19/18 10:59 Dose: 25 mg Lidocaine (Lidoderm) 1 ea TD DAILY [facility] Last Admin: 10/19/18 11:00 Dose: Not Given Oxycodone HCl (Oxycodone Immediate Release Tab) 10 mg PO Q8H [facility] Last Admin: 10/19/18 06:52 Dose: 10 mg Pantoprazole Sodium (Protonix Inj) 40 mg IVP DAILY [facility] Last Admin: 10/19/18 11:00 Dose: 40 mg Pregabalin (Lyrica) 150 mg PO TID [facility] Tamsulosin HCl (Flomax) 0.4 mg PO DAILY [facility] Last Admin: 10/19/18 10:59 Dose: 0.4 mg Tramadol HCl (Ultram) 50 mg PO TID PRN PRN Reason: Pain, moderate (4-7) Physical Exam - Constitutional Appears: Well, No Acute Distress - Head Exam Head Exam: ATRAUMATIC, NORMAL INSPECTION - Eye Exam Eye Exam: EOMI. absent: Scleral icterus - ENT Exam ENT Exam: Mucous Membranes Moist. absent: Mucous Membranes Dry - Respiratory Exam Respiratory Exam: Clear to Auscultation Bilateral, NORMAL BREATHING PATTERN. absent: Accessory Muscle Use - Cardiovascular Exam Cardiovascular Exam: REGULAR RHYTHM, RRR - GI/Abdominal Exam GI & Abdominal Exam: Normal Bowel Sounds, Soft. absent: Bruit, Diminished Bowel Sounds, Distended, Firm, Guarding, Hernia, Mass, Organomegaly, Pulsatile Mass, Rebound, Rigid, Tenderness - Extremities Exam Extremities exam: Positive for: normal inspection, pedal edema (+1 bilateral lower extremity edema) - Neurological Exam Neurological exam: Alert, Oriented x3 - Psychiatric Exam Psychiatric exam: Normal Affect, Normal Mood - Skin Skin Exam: Normal Color, Warm Results - Vital Signs Recent Vital Signs: Last Vital Signs Temp 97.8 F 10/19/18 15:41 Pulse 108 H 10/19/18 15:41 Resp 20 10/19/18 15:41 BP 112/63 10/19/18 15:41 Pulse Ox 99 10/18/18 20:12 - Labs Result Diagrams: 10/19/18 12:45 10/19/18 06:30 Labs: Laboratory Results - last 24 hr 10/18/18 10/18/18 10/18/18 16:38 16:38 18:49 WBC 6.2 RBC 3.48 L Hgb 5.0 L* D Hct 20.9 L* MCV 60.1 L D MCH 14.4 L MCHC 23.9 L RDW 20.7 H Plt Count 405 MPV 9.4 Neut % (Auto) 56.2 Lymph % (Auto) 26.1 [place] % (Auto) 14.3 H Eos % (Auto) 2.9 Baso % (Auto) 0.5 Lymph # (Auto) 1.6 [place] # (Auto) 0.9 H Eos # (Auto) 0.2 Baso # (Auto) 0.03 Absolute Neuts (auto) 3.47 Sodium 139 Potassium 4.5 Chloride 105 Carbon Dioxide 23 Anion Gap 15 BUN 17 Creatinine 0.7 L Est GFR ( Amer) > 60 Est GFR (Non-Af Amer) > 60 Random Glucose 96 Calcium 8.6 Magnesium 1.9 Lactate Dehydrogenase 319 L Total Creatine Kinase 48 Troponin I < 0.01 NT-Pro-B Natriuret Pep 321 Blood Type A NEGATIVE Antibody Screen Negative Crossmatch See Detail BBK History Checked Patient has bt 10/19/18 10/19/18 10/19/18 06:10 06:30 12:45 WBC 5.5 6.1 RBC 3.72 3.88 Hgb 6.5 L* 6.7 L* Hct 23.9 L 24.9 L MCV 64.2 L D 64.2 L MCH 17.5 L 17.3 L MCHC 27.2 L 26.9 L RDW 25.0 H 24.9 H Plt Count 349 368 MPV 9.1 9.4 Neut % (Auto) Lymph % (Auto) [place] % (Auto) Eos % (Auto) Baso % (Auto) Lymph # (Auto) [place] # (Auto) Eos # (Auto) Baso # (Auto) Absolute Neuts (auto) Sodium 139 Potassium 4.2 Chloride 105 Carbon Dioxide 26 Anion Gap 12 BUN 16 Creatinine 0.7 L Est GFR ( Amer) > 60 Est GFR (Non-Af Amer) > 60 Random Glucose 79 Calcium 8.2 L Magnesium Lactate Dehydrogenase Total Creatine Kinase Troponin I NT-Pro-B Natriuret Pep Blood Type Antibody Screen Crossmatch BBK History Checked Assessment & Plan - Assessment and Plan (Free Text) Assessment: 77-year-old male with history of duodenal carcinoid (untreated) presenting with shortness of breath found to have worsening anemia. #Acute microcytic anemia: Concerning for GI blood loss likely related to untreated duodenal carcinoid tumor. No signs of active GI bleed at this time. Patient hemodynamically stable. Hemoglobin 5 upon presentation currently undergoing 2 units PRBC transfusion. #History of duodenal carcinoid: untreated #Diverticulosis #History of DVT status post IVC filter: Not on anticoagulation #Hypertension, chronic low back pain Plan: Agree with PRBC transfusion, monitor response -Nothing by mouth for now in case able to add on for endoscopy later today PPI IV every 12 hours monitor labs Patient discussed with Dr. Price. Please see attestation for further recommendations/changes <Van Price V - Last Filed: 10/19/18 23:39> Meds - Medications Medications: Current Medications Amlodipine Besylate (Norvasc) 2.5 mg PO DAILY [facility] Last Admin: 10/19/18 10:59 Dose: 2.5 mg Finasteride (Proscar) 5 mg PO DAILY [facility] Last Admin: 10/19/18 10:59 Dose: 5 mg Furosemide (Lasix) 20 mg PO QOTHERDAY [facility] Home Med (Home Med) 1 unit PO DAILY [facility] Last Admin: 10/19/18 16:06 Dose: Not Given Home Med (Home Med) 1 unit PO DAILY [facility] Last Admin: 10/19/18 16:05 Dose: Not Given Hydroxyzine HCl (Atarax) 25 mg PO DAILY [facility] Last Admin: 10/19/18 10:59 Dose: 25 mg Lidocaine (Lidoderm) 1 ea TD DAILY [facility] Last Admin: 10/19/18 11:00 Dose: Not Given Oxycodone HCl (Oxycodone Immediate Release Tab) 10 mg PO Q8H [facility] Last Admin: 10/19/18 22:30 Dose: 10 mg Pantoprazole Sodium (Protonix Inj) 40 mg IVP Q12 [facility] Last Admin: 10/19/18 22:28 Dose: 40 mg Pregabalin (Lyrica) 150 mg PO TID [facility] Last Admin: 10/19/18 17:56 Dose: 150 mg Tamsulosin HCl (Flomax) 0.4 mg PO DAILY [facility] Last Admin: 10/19/18 10:59 Dose: 0.4 mg Tramadol HCl (Ultram) 50 mg PO TID PRN PRN Reason: Pain, moderate (4-7) Last Admin: 10/19/18 22:37 Dose: 50 mg Results - Vital Signs Recent Vital Signs: Last Vital Signs Temp 97.9 F 10/19/18 20:37 Pulse 74 10/19/18 20:37 Resp 18 10/19/18 20:37 BP 127/75 10/19/18 20:37 Pulse Ox 99 10/18/18 20:12 - Labs Result Diagrams: 10/19/18 12:45 10/19/18 06:30 Labs: Laboratory Results - last 24 hr 10/18/18 10/19/18 10/19/18 18:49 06:10 06:30 WBC 5.5 RBC 3.72 Hgb 6.5 L* Hct 23.9 L MCV 64.2 L D MCH 17.5 L MCHC 27.2 L RDW 25.0 H Plt Count 349 MPV 9.1 Sodium 139 Potassium 4.2 Chloride 105 Carbon Dioxide 26 Anion Gap 12 BUN 16 Creatinine 0.7 L Est GFR ( Amer) > 60 Est GFR (Non-Af Amer) > 60 Random Glucose 79 Calcium 8.2 L CA 19-9 Antigen CA 125 Antigen Blood Type A NEGATIVE Antibody Screen Negative Crossmatch See Detail BBK History Checked Patient has bt 10/19/18 10/19/18 12:10 12:45 WBC 6.1 RBC 3.88 Hgb 6.7 L* Hct 24.9 L MCV 64.2 L MCH 17.3 L MCHC 26.9 L RDW 24.9 H Plt Count 368 MPV 9.4 Sodium Potassium Chloride Carbon Dioxide Anion Gap BUN Creatinine Est GFR ( Amer) Est GFR (Non-Af Amer) Random Glucose Calcium CA 19-9 Antigen 10.4 CA 125 Antigen < 5.5 Blood Type Antibody Screen Crossmatch BBK History Checked Attending/Attestation - Attestation I have personally seen and examined this patient.: Yes I have fully participated in the care of the patient.: Yes I have reviewed all pertinent clinical information: Yes Notes (Text): This is an addendum to the GI consultation report dictated by the fellow. The patient was seen and evaluated earlier. Discussed with Dr. Kirk and with Dr. Treadwell. History of known duodenal carcinoid. Chronic back pain. Patient has been noncompliant with the follow-up recommendations. Patient was told to multiply occasions about the diagnosis and also recommended treatment options. This was also explained to the patient's son who is also physician. Significant drop in hemoglobin admitted with a symptomatic anemia patient denies any bright red blood per rectum or melena On examination abdomen soft nontender Follow-up of the hemoglobin and hematocrit. Discussed with the patient's family who were at bedside Patient is scheduled for an upper GI endoscopy in a.m. 10/19/18 23:35
--- NOTE | 2018-10-19 20:01 | CON ---
DATE: 10/19/2018 CONSULT SERVICE: Cardiology. REASON FOR CONSULTATION AND FOLLOWUP: Cardiac evaluation, admitted with shortness of breath. BRIEF CLINICAL HISTORY: A 77-year-old male with past medical history significant for hypertension, hyperlipidemia, DVT and back surgery with residual, admitted with bilateral lower extremity swelling and shortness of breath of 5 to 6 days. Denies any chest pain. Denies any shortness of breath. Denies any palpitation. PAST MEDICAL HISTORY: Significant for paraesthesia in both lower extremities, multiple epidural injections. Past history significant for anemia, multiple blood transfusions in the past, history of severe chronic back pain, history of osteoarthritis, history of multiple epidurals, history of aortic stenosis, [id number] hypertension and gait disorder. SOCIAL HISTORY: Denies any smoking. Denies any history of alcohol abuse. CURRENT MEDICATION: The patient is taking at home; tramadol, oxycodone, amlodipine, gabapentin, lidocaine, Proscar and Avodart. ALLERGIES: NO KNOWN DRUG ALLERGY. REVIEW OF SYSTEMS: As per HPI. PREVIOUS CARDIAC WORKUP: The patient has normal sinus, last echo was done in 2013 and stress test was done in 2013 was essentially normal prior to back surgery. Last echo was a ORIN on 02/15/2014 that shows normal sinus, ejection fraction 55% to 60%, a small segmental wall motion abnormality, normal segmental wall motion, mild aortic regurgitation, mild mitral regurgitation, trace-to mild tricuspid regurgitation, valve area 1.8 cm2, mild aortic stenosis. PHYSICAL EXAMINATION GENERAL: Height of the patient 5 feet 5 inches. Weight of the patient 180 pounds. Body mass index 30 kg/m2. VITAL SIGNS: Temperature afebrile. Heart rate 80 and blood pressure 126/64. HEENT: PERRLA. Extraocular muscles intact. NECK: Supple. No carotid bruits or thyromegaly. CHEST: Clear to auscultation. HEART: S1 and S2, regular. ABDOMEN: Soft. EXTREMITY: Clubbing and cyanosis negative. LABORATORY DATA: Blood workup as follows; WBC 5.5, hemoglobin 6.5, hematocrit 23.9 and platelet count 349. Chemistry shows sodium 130, potassium 4.2, chloride 105, carbon dioxide 26, anion gap of 12, BUN 16 and creatinine 0.9. IMPRESSION: A 77-year-old male with a past medical history significant for multiple back problems, severe anemia, history of multiple blood transfusions in the past, admitted with severe anemia, history of moderate aortic stenosis and leg edema. RECOMMENDATION: Echo to assess LV function. Continue Hematology/Oncology followup. Consider packed RBC transfusion. Further recommendations depending upon the hospital course. We will await for GI and Hematology to see, then we will give a blood transfusion. We will follow with you. Thank you, Dr. Kirk, for providing us the opportunity in taking care of the patient, Aren Murray. Laura Gregorio MD [facility] # [id number]
--- NOTE | 2018-10-19 20:15 | HP ---
DATE OF EXAM: 10/18/2018 MAIN REASON FOR ADMISSION: The patient came because of dyspnea. HISTORY OF PRESENT ILLNESS: This is a 77-year-old male with history of carcinoid tumor of the stomach that he has been holding, no surgery, has history of multiple episodes of low hemoglobin with multiple transfusions. The patient came in with dyspnea that became progressively worse even with a few steps at home. The patient also has aortic valve stenosis and came in with the progressive dyspnea and found out to have a hemoglobin of 5. He does look pale and patient also noted that both lower extremities are swollen. Denied any fever, any chills, any chest pain, or any dizziness. The patient is otherwise stable. PAST MEDICAL HISTORY: As I mentioned, he does have a history of chronic back pain where he had surgery for it and has been on multiple medications for his back, history of hypertension, history of edema of lower extremities, history of gastritis, carcinoid tumor, prostate enlargement, chronic constipation, and sciatica. PAST SURGICAL HISTORY: He did have a history of back surgery with hardware prosthesis brought in and that was more than five years ago. The patient had multiple endoscopies for carcinoid tumors. HOME MEDICATIONS: He takes Lyrica 150 mg b.i.d., Lasix 20 mg p.o. daily or every other day if needed, Proscar 5 mg daily, tramadol 50 mg, Percocet 10 mg t.i.d., Flomax 0.4 mg one today, Amitiza 24 mcg p.o. b.i.d., hydroxyzine 25 mg p.o. daily, Norvasc 2.5 mg daily, Avodart 0.5 mg p.o. daily, and Lidoderm patch. REVIEW OF SYSTEMS: As in the present illness as above. PHYSICAL EXAMINATION: As follows; GENERAL: When he came in, was seen in emergency room, lying in bed supine. No distress. VITAL SIGNS: Temperature 98.3, heart rate 81, blood pressure 104/71, respiration 19, and saturation 98%. HEAD AND NECK: Normal. No JVD. No thyromegaly. CHEST: Clear bilaterally. CARDIAC: First sound is normal; second sound diminished with systolic murmur. ABDOMEN: Soft, obese, and nontender. EXTREMITIES: Bilateral leg edema. There is a right lower extremity mild redness, which is chronic, but nontender. NEUROLOGIC: He moves all extremities. He is alert, awake, and oriented x3. LABORATORY DATA: Laboratory study shows white count 6.2, hemoglobin 5, hematocrit 20.9, and platelets 405. Chemistry; sodium 139, potassium 4.5, chloride 105, bicarb 23, BUN 17, and creatinine 0.7. Lactate dehydrogenase 319. Calcium 8.6, magnesium 1.9, troponin 0.01, and proBNP is 321. The patient also had a chest x-ray, which shows no active pulmonary disease. The patient also had an electrocardiogram, which showed sinus rhythm with PACs or premature atrial complexes, left anterior hemiblock, and nonspecific ST-T changes. IMPRESSION AND PLAN: This is a 77-year-old male, came in with dyspnea, history of anemia in the past with the current drop in his hemoglobin, probably gastrointestinal related, came in with hemoglobin of 5. The patient also had a aortic valve stenosis which may exacerbate his feeling of dyspnea and may be underlying coronary, unclear. We will admit the patient for; 1. Acute drop in hemoglobin, anemia. We will transfuse the patient 2 units. We will evaluate his hemoglobin in the morning. He may need more transfusion depending upon how he is responding. 2. We are going to get Gastroenterology consult, Dr. Price. We will get Cardiology consult, Dr. Gregorio and we will get Dr. Treadwell, Hematology/Oncology consultation for further evaluation. We will continue to transfuse; monitor H and H; IV Protonix. Discuss with the son, he is a doctor. 3. Prostate enlargement and chronic back pain. Plan is to continue Proscar, Flomax, tramadol, and oxycodone. Continue Lasix. We will also going to get a venous Doppler of both lower extremities, and we will continue followup on the patient. Jim Kirk MD
[2018-10-20 01:33] LABS: MEAN CORPUSCULAR HEMOGLOBIN 19.4 pg (25.0-35.0); MEAN CORPUSCULAR HGB CONC 28.5 g/dl (31.0-37.0); MEAN PLATELET VOLUME 9.3 fl (7.0-11.0); RBC 4.13 10^6/uL (3.5-6.1); RED CELL DISTRIBUTION WIDTH 26.9 % (11.5-14.5); WHITE BLOOD COUNT 6.7 10^3/uL (4.5-11.0)
--- NOTE | 2018-10-20 04:12 | PN ---
DATE: 10/19/2018 SUBJECTIVE: A 77-year-old male who came into the hospital with dyspnea and found to be having anemia with hemoglobin of 5. The patient today is feeling better. His hemoglobin went up to 6.9. No chest pain. No short of breath. PHYSICAL EXAMINATION: VITAL SIGNS: Temperature 98, heart rate 77, blood pressure 133/71, respirations 18. HEAD AND NECK: Normal. No JVD. No thyromegaly. CHEST: Clear bilaterally. CARDIAC: First sound and second sound normal. ABDOMEN: Soft, nontender. EXTREMITIES: Mild edema. NEUROLOGICAL: Normal. LABORATORY DATA: The patient has laboratory studies, which shows white count 6.1, hemoglobin 6.7, hematocrit 24.9, platelets 368. Sodium 139, potassium 4.2, chloride 105, bicarb 26, BUN 16, creatinine 0.7. The patient also have calcium 8.2. IMPRESSION AND PLAN: 1. Anemia. Etiology possibly gastrointestinal in the origin. The patient does have a history of carcinoid discovered that he reused surgery in the past multiple times and he preferred to wait. So, we will go for endoscopy again and continue 2 more units of blood transfusions. 2. Hypertension. Continue current blood pressure medicines. 3. Chronic back pain. Continue oxycodone and tramadol plus Lyrica. 4. Difficulty ambulation due to his chronic back pain. We will put sequential compression devices for his lower extremity and add deep venous thrombosis prophylaxis. 5. For his prostate problem, we will continue Proscar and Flomax. 6. History of valvular heart disease, aortic stenosis. Cardiology consult on board. We will continue current therapy. Jim Kirk MD
--- NOTE | 2018-10-20 07:07 | CP.PCM.PN ---
Subjective - Date & Time of Evaluation Date of Evaluation: 10/20/18 Time of Evaluation: 06:18 - Subjective Subjective: Awake, no distress Reason for consultation and follow up: Cardiac evaluation of shortness of breath, admitted for symptomatic anemia Seen and examined by me and Dr. Gregorio Objective - Vital Signs/Intake and Output Vital Signs (last 24 hours): Temp Pulse Resp BP Pulse Ox 97.4 F L 97 H 20 115/69 95 10/20/18 06:00 10/20/18 06:00 10/20/18 06:00 10/20/18 06:00 10/20/18 06:00 Intake and Output: 10/20/18 10/20/18 06:59 18:59 Intake Total 1283 Output Total 2170 Balance -887 - Medications Medications: Current Medications Amlodipine Besylate (Norvasc) 2.5 mg PO DAILY [facility] Last Admin: 10/19/18 10:59 Dose: 2.5 mg Finasteride (Proscar) 5 mg PO DAILY [facility] Last Admin: 10/19/18 10:59 Dose: 5 mg Furosemide (Lasix) 20 mg PO QOTHERDAY [facility] Home Med (Home Med) 1 unit PO DAILY [facility] Last Admin: 10/19/18 16:06 Dose: Not Given Home Med (Home Med) 1 unit PO DAILY [facility] Last Admin: 10/19/18 16:05 Dose: Not Given Hydroxyzine HCl (Atarax) 25 mg PO DAILY [facility] Last Admin: 10/19/18 10:59 Dose: 25 mg Lidocaine (Lidoderm) 1 ea TD DAILY [facility] Last Admin: 10/19/18 11:00 Dose: Not Given Oxycodone HCl (Oxycodone Immediate Release Tab) 10 mg PO Q8H [facility] Last Admin: 10/19/18 22:30 Dose: 10 mg Pantoprazole Sodium (Protonix Inj) 40 mg IVP Q12 [facility] Last Admin: 10/19/18 22:28 Dose: 40 mg Pregabalin (Lyrica) 150 mg PO TID [facility] Last Admin: 10/19/18 17:56 Dose: 150 mg Tamsulosin HCl (Flomax) 0.4 mg PO DAILY [facility] Last Admin: 10/19/18 10:59 Dose: 0.4 mg Tramadol HCl (Ultram) 50 mg PO TID PRN PRN Reason: Pain, moderate (4-7) Last Admin: 10/19/18 22:37 Dose: 50 mg - Labs Labs: 10/20/18 01:15 10/19/18 06:30 - Constitutional Appears: Non-toxic, No Acute Distress - Head Exam Head Exam: NORMAL INSPECTION - Eye Exam Eye Exam: Normal appearance Pupil Exam: NORMAL ACCOMODATION - ENT Exam ENT Exam: Mucous Membranes Moist - Respiratory Exam Respiratory Exam: Decreased Breath Sounds, Clear to Ausculation Bilateral, NORMAL BREATHING PATTERN - Cardiovascular Exam Cardiovascular Exam: REGULAR RHYTHM, +S1, +S2 - GI/Abdominal Exam GI & Abdominal Exam: Soft, Normal Bowel Sounds - Extremities Exam Extremities Exam: Full ROM Additional comments: 1-2+edema - Neurological Exam Neurological Exam: Alert, Awake, Oriented x3 - Psychiatric Exam Psychiatric exam: Normal Affect, Normal Mood - Skin Skin Exam: Dry, Normal Color, Warm Assessment and Plan - Assessment and Plan (Free Text) Assessment: a 77 year old male who came in to the ER due to shortness of breath on exertion for the past 5-6 days. History of hypertension, hyperlipidemia, carcinoid Tumor at [facility] (EGD on January 2017) refused surgical intervention, BPH, DVT,chronic anemia, chronic back pain (surgery 2013), severe spinal stenosis, back surgery with residual left leg numbness. He takes Tramadol, Oxycodone and lidocaine for pain. Low hemoglobin/hematocrit on admission, claimed to positive bloody stools. Transfused 2 units PRBC. Hemoglobin stabilized. Stress done prior to back surgery in 2013 showed normal results. Hematology on consult. GI on consult. Ruled out congestive heart failure. Admitted for symptomatic anemia. For echo to evaluate LV function. Continue to monitor H/H. Plan: No distress For echo to evaluate LV function H/H stable post transfusion of PRBC GI on Consult Hematology on consult Heart rate stable Blood pressure stable On Norvasc 2.5 mg daily,Proscar 5 mg daily, Lasix 20 mg every other day Flomax 0.4 mg daily Continue current treatment Monitor H/H, transfuse PRBC ad needed Will follow up Plan and treatment discussed with Dr. Gregorio
[2018-10-20 07:13] LABS: BASO # 0.12 K/mm3 (0.0-2.0); BASO % 1.4 % (0.0-3.0); EOS # 0.5 (0.0-0.7); EOS % 5.4 % (1.5-5.0); HEMOGLOBIN 9.3 g/dL (14.0-18.0); LYMPH # 2.3 (1.2-3.4); LYMPH % 28.1 % (22.0-35.0); MEAN CELL VOLUME 68.9 fl (80.0-105.0); MEAN CORPUSCULAR HEMOGLOBIN 19.3 pg (25.0-35.0); MEAN PLATELET VOLUME 9.6 fl (7.0-11.0); MONO % 11.9 % (1.0-6.0); RBC 4.82 10^6/uL (3.5-6.1); RED CELL DISTRIBUTION WIDTH 27.2 % (11.5-14.5); WHITE BLOOD COUNT 8.3 10^3/uL (4.5-11.0)
--- NOTE | 2018-10-20 07:27 | CP.PCM.PN ---
Subjective - Date & Time of Evaluation Date of Evaluation: 10/20/18 Time of Evaluation: 07:26 - Subjective Subjective: General surgery consult for DR. Eliel Alatorre, PGY-2 Pt seen/examined at bedside with surgical team Pt resting comfortably in bed. Denies N & V, F & C, CP, ab pain, dizziness, weakness, STRANGE. No complaints at this time. For EGD today. Objective - Vital Signs/Intake and Output Vital Signs (last 24 hours): Temp Pulse Resp BP Pulse Ox 97.4 F L 97 H 20 115/69 95 10/20/18 06:00 10/20/18 06:00 10/20/18 06:00 10/20/18 06:00 10/20/18 06:00 Intake and Output: 10/20/18 10/20/18 06:59 18:59 Intake Total 1283 Output Total 2170 Balance -887 - Medications Medications: Current Medications Amlodipine Besylate (Norvasc) 2.5 mg PO DAILY [facility] Last Admin: 10/19/18 10:59 Dose: 2.5 mg Finasteride (Proscar) 5 mg PO DAILY [facility] Last Admin: 10/19/18 10:59 Dose: 5 mg Furosemide (Lasix) 20 mg PO QOTHERDAY [facility] Home Med (Home Med) 1 unit PO DAILY [facility] Last Admin: 10/19/18 16:06 Dose: Not Given Home Med (Home Med) 1 unit PO DAILY [facility] Last Admin: 10/19/18 16:05 Dose: Not Given Hydroxyzine HCl (Atarax) 25 mg PO DAILY [facility] Last Admin: 10/19/18 10:59 Dose: 25 mg Lidocaine (Lidoderm) 1 ea TD DAILY [facility] Last Admin: 10/19/18 11:00 Dose: Not Given Oxycodone HCl (Oxycodone Immediate Release Tab) 10 mg PO Q8H [facility] Last Admin: 10/19/18 22:30 Dose: 10 mg Pantoprazole Sodium (Protonix Inj) 40 mg IVP Q12 [facility] Last Admin: 10/19/18 22:28 Dose: 40 mg Pregabalin (Lyrica) 150 mg PO TID [facility] Last Admin: 10/19/18 17:56 Dose: 150 mg Tamsulosin HCl (Flomax) 0.4 mg PO DAILY [facility] Last Admin: 10/19/18 10:59 Dose: 0.4 mg Tramadol HCl (Ultram) 50 mg PO TID PRN PRN Reason: Pain, moderate (4-7) Last Admin: 10/19/18 22:37 Dose: 50 mg - Labs Labs: 10/20/18 07:00 10/19/18 06:30 - Constitutional Appears: Non-toxic, No Acute Distress - Head Exam Head Exam: ATRAUMATIC, NORMAL INSPECTION, NORMOCEPHALIC - Eye Exam Eye Exam: EOMI, Normal appearance - ENT Exam ENT Exam: Mucous Membranes Moist, Normal Exam - Neck Exam Neck Exam: Full ROM - Respiratory Exam Respiratory Exam: NORMAL BREATHING PATTERN - Cardiovascular Exam Cardiovascular Exam: REGULAR RHYTHM, +S1, +S2 - GI/Abdominal Exam GI & Abdominal Exam: Soft. 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 Plan: FU 5-HIAA urine test CA 19-9 WNL (10.4) CA 125 WNL (<5.5) FU ocretotide scan FU CT Chest/ab/pelvis FU EGD Monitor H & H Transfuse PRN Hematology oncology following Further recs pending imaging and testing results Will ADA Alatorre, PGY-2
[2018-10-20 07:35] LABS: ALB/GLOB RATIO 1.2 (1.1-1.8); ALT/SGPT 8 U/L (7-56); AST/SGOT 28 U/L (17-59); BLOOD UREA NITROGEN 11 mg/dL (7-21); CALCIUM 8.9 mg/dL (8.4-10.5); GFR NON-AFRICAN AMERICAN > 60; HDL CHOLESTEROL 47 mg/dL (29-60)
[2018-10-20 07:41] LABS: LDL CHOLESTEROL 74 mg/dL (0-129)
--- NOTE | 2018-10-20 09:10 | CP.PCM.PN ---
<Surya Beltrán - Last Filed: 10/20/18 20:26> Subjective - Date & Time of Evaluation Date of Evaluation: 10/20/18 Time of Evaluation: 06:00 - Subjective Subjective: Surya Beltrán PGY2 Heme/Onc Progress Note for Dr. Treadwell Patient seen and evaluated bedside in AM. No acute issues overnight. Patient states he does not want CT scan today with contrast. Objective - Vital Signs/Intake and Output Vital Signs (last 24 hours): Temp Pulse Resp BP Pulse Ox 97.4 F L 76 12 132/85 99 10/20/18 06:00 10/20/18 08:54 10/20/18 08:54 10/20/18 08:54 10/20/18 08:54 Intake and Output: 10/20/18 10/20/18 06:59 18:59 Intake Total 1283 Output Total 2170 Balance -887 - Medications Medications: Current Medications Amlodipine Besylate (Norvasc) 2.5 mg PO DAILY [facility] Last Admin: 10/19/18 10:59 Dose: 2.5 mg Finasteride (Proscar) 5 mg PO DAILY [facility] Last Admin: 10/19/18 10:59 Dose: 5 mg Furosemide (Lasix) 20 mg PO QOTHERDAY [facility] Home Med (Home Med) 1 unit PO DAILY [facility] Last Admin: 10/19/18 16:06 Dose: Not Given Home Med (Home Med) 1 unit PO DAILY [facility] Last Admin: 10/19/18 16:05 Dose: Not Given Hydroxyzine HCl (Atarax) 25 mg PO DAILY [facility] Last Admin: 10/19/18 10:59 Dose: 25 mg Lidocaine (Lidoderm) 1 ea TD DAILY [facility] Last Admin: 10/19/18 11:00 Dose: Not Given Oxycodone HCl (Oxycodone Immediate Release Tab) 10 mg PO Q8H [facility] Last Admin: 10/19/18 22:30 Dose: 10 mg Pantoprazole Sodium (Protonix Inj) 40 mg IVP Q12 [facility] Last Admin: 10/19/18 22:28 Dose: 40 mg Pregabalin (Lyrica) 150 mg PO TID [facility] Last Admin: 10/19/18 17:56 Dose: 150 mg Tamsulosin HCl (Flomax) 0.4 mg PO DAILY [facility] Last Admin: 10/19/18 10:59 Dose: 0.4 mg Tramadol HCl (Ultram) 50 mg PO TID PRN PRN Reason: Pain, moderate (4-7) Last Admin: 10/19/18 22:37 Dose: 50 mg - Labs Labs: 10/20/18 07:00 10/20/18 07:00 - Constitutional Appears: No Acute Distress - Head Exam Head Exam: ATRAUMATIC, NORMAL INSPECTION, NORMOCEPHALIC - Eye Exam Eye Exam: Normal appearance - Respiratory Exam Respiratory Exam: Clear to Ausculation Bilateral, NORMAL BREATHING PATTERN - Cardiovascular Exam Cardiovascular Exam: REGULAR RHYTHM - GI/Abdominal Exam GI & Abdominal Exam: Soft. absent: Tenderness - Neurological Exam Neurological Exam: Alert, Awake, Oriented x3 Assessment and Plan - Assessment and Plan (Free Text) Plan: Anemia with history for carcinoid -Hgb of 5.0 on admission -Hgb currently 9.3 -s/p 4 units PRBC -fibrinogen, fibrin split products pending -5-HIAA and tumor markers -Octreotide Scan -CT ChestAbdPelvis pending -GI consulted, follow recs -Monitor H&H, transfuse as needed -EGD from AM shows gastric mucosal atrophy, biopsied. large submucosal nodule in duodenum, biopsied, no change in size of the lesion -plan for colonoscopy tomorrow AM <Sindy rTeadwell - Last Filed: 10/22/18 12:27> Objective - Vital Signs/Intake and Output Vital Signs (last 24 hours): Temp Pulse Resp BP Pulse Ox 98 F 90 20 142/68 93 L 10/22/18 06:00 10/22/18 06:00 10/22/18 06:00 10/22/18 11:06 10/22/18 06:00 Intake and Output: 10/22/18 10/22/18 06:59 18:59 Intake Total 360 Balance 360 - Medications Medications: Current Medications Amlodipine Besylate (Norvasc) 2.5 mg PO DAILY [facility] Last Admin: 10/22/18 11:06 Dose: 2.5 mg Finasteride (Proscar) 5 mg PO DAILY [facility] Last Admin: 10/22/18 11:06 Dose: 5 mg Furosemide (Lasix) 20 mg PO QOTHERDAY [facility] Last Admin: 10/22/18 11:06 Dose: 20 mg Home Med (Home Med) 1 unit PO DAILY [facility] Last Admin: 10/21/18 10:06 Dose: Not Given Home Med (Home Med) 1 unit PO DAILY [facility] Last Admin: 10/21/18 10:06 Dose: Not Given Hydroxyzine HCl (Atarax) 25 mg PO DAILY [facility] Last Admin: 10/21/18 11:11 Dose: Not Given Lidocaine (Lidoderm) 1 ea TD DAILY [facility] Last Admin: 10/22/18 11:05 Dose: 1 ea Ondansetron HCl (Zofran Inj) 4 mg IVP Q6H PRN PRN Reason: Nausea/Vomiting Oxycodone HCl (Oxycodone Immediate Release Tab) 10 mg PO Q8H [facility] Last Admin: 10/22/18 06:22 Dose: 10 mg Pantoprazole Sodium (Protonix Inj) 40 mg IVP Q12 [facility] Last Admin: 10/21/18 22:27 Dose: 40 mg Pregabalin (Lyrica) 150 mg PO TID [facility] Last Admin: 10/22/18 11:05 Dose: 150 mg Tamsulosin HCl (Flomax) 0.4 mg PO DAILY [facility] Last Admin: 10/22/18 11:06 Dose: 0.4 mg Tramadol HCl (Ultram) 50 mg PO TID PRN PRN Reason: Pain, moderate (4-7) Last Admin: 10/22/18 02:00 Dose: 50 mg - Labs Labs: 10/21/18 11:00 10/21/18 11:00 PT 13.8 SECONDS (9.4-12.5) H 10/20/18 14:00 INR 1.24 10/20/18 14:00 Attending/Attestation - Attestation I have personally seen and examined this patient.: Yes I have fully participated in the care of the patient.: Yes I have reviewed all pertinent clinical information, including history, physical exam and plan: Yes
[2018-10-20] MEDS ORDERED: Etomidate 20 mg/10ml Inj IV ONE (09:16)
[2018-10-20] MEDS ORDERED: Propofol 10 mg/ml Inj (20 ML) ONE (09:16)
[2018-10-20] MEDS ORDERED: Sodium Chloride 0.9% 1,000 ML IV SCH (09:45)
--- NOTE | 2018-10-20 11:44 | US ---
HISTORY: Leg pain and swelling. Evaluate for DVT PHYSICIAN(S): Celso Barry MD. TECHNIQUE: Duplex sonography and color-flow Doppler with graded compression were used to evaluate the deep venous systems of both lower extremities. The exam is limited by edema FINDINGS: The visualized deep venous systems of both lower extremities are sonographically normal and compressible. Normal wave forms and augmentation are seen. There is no sonographic evidence for deep venous thrombosis in the visualized segments of both lower extremities. IMPRESSION: No sonographic evidence for deep venous thrombosis in the visualized segments of both lower extremities.
[2018-10-20] MEDS ORDERED: NuLYTELY (NACL/NAHCO3/KCL/PEG) 4L PO ONE (13:00)
[2018-10-20] MEDS: Lidocaine 5% Patch TD SCH (13:15)
[2018-10-20] MEDS: AVODART 0.5 MG PO SCH (13:17)
[2018-10-20] MEDS: AMITIZA 24 MG PO SCH (13:17)
[2018-10-20] MEDS: oxyCODONE 10 mg Immediate Release Tab PO SCH ×3 (13:23→22:07)
[2018-10-20 14:25] LABS: INR 1.24; PROTHROMBIN TIME 13.8 SECONDS (9.4-12.5)
[2018-10-20] MEDS ORDERED: Bisacodyl 5mg EC Tab PO ONE (19:00)
--- NOTE | 2018-10-20 20:29 | CARD ---
APPROVED REPORT Date of service: 10/20/2018 EXAM: Two-dimensional and M-mode echocardiogram with Doppler and color Doppler. INDICATION SOB//CHF 2D DIMENSIONS Left Atrium (2D)3.8 (1.6-4.0cm)IVSd1.0 (0.7-1.1cm) LVDd4.9 (3.9-5.9cm)LVOT Diameter2.1 (1.8-2.4cm) PWd1.3 (0.7-1.1cm) M-Mode DIMENSIONS Aortic Root3.70 (2.2-3.7cm)Aortic Cusp Exc.1.10 (1.5-2.0cm) Aortic Valve AoV Peak Cpkzrtwq756.0cm/sAoV VTI59.8cmAO Peak GR.33mmHg LVOT Peak Dyiqvpmv15.6cm/sLVOT VTI21.80cmAO Mean GR.16mmHg JUNIOR (VMAX)1.44ms9LDT (VTI)1.26cm2 Mitral Valve E/A ratio0.0 TDI E/Lateral E'0.0E/Medial E'0.0 Pulmonary Valve PV Peak Iuijzwxp35.5cm/sPV Peak Grad.4mmHg Tricuspid Valve TR Peak Qeacldbx549bk/sRAP [id number] Peak Gr.20mmHg [id number] LEFT VENTRICLE The left ventricle is normal size. There is normal left ventricular wall thickness. The systolic function is mildly impaired.EF-45% There is mildf global hypokinesis of the left ventricle. The left ventricular diastolic function is normal. No left ventricle thrombus noted on this study. There is no ventricular septal defect visualized. There is no left ventricular aneurysm. There is no mass noted in the left ventricle. RIGHT VENTRICLE The right ventricle is mildly dilated. There is normal right ventricular wall thickness. Systolic function of RV is mildly to moderately reduced. ATRIA The left atrium size is normal. The right atrium is borderline dilated. The interatrial septum is intact with no evidence for an atrial septal defect. AORTIC VALVE The aortic valve is calcified and displays decreased opening. There is mild aortic regurgitation. There is moderate valvular aortic stenosis.JUNIOR 1.2-1.3 cm@ There is no aortic valvular vegetation. MITRAL VALVE The mitral valve is thickened but opens well. Mitral annular calcification is mild to moderate. Mitral regurgitation is mild. There is no mitral valve stenosis. There is no evidence of mitral valve prolapse. TRICUSPID VALVE The tricuspid valve leaflets are thickened , but open well. There is mild tricuspid regurgitation.RVSP-30 mmof Hg. There is no tricuspid valve stenosis. There is no tricuspid valve prolapse or vegetation. PULMONIC VALVE The pulmonic valve is mildly thickened. There is trace to mild pulmonic valvular regurgitation. There is no pulmonic valvular stenosis. GREAT VESSELS The aortic root is normal in size. The ascending aorta is normal in size. The pulmonary artery is normal. The IVC is normal in size and collapses >50% with inspiration. PERICARDIAL EFFUSION There is no pleural effusion. There is a trace pericardial effusion. <Conclusion> The left ventricle is normal size. There is normal left ventricular wall thickness. The systolic function is mildly impaired.EF-45% The right ventricle is mildly dilated. Systolic function of RV is mildly to moderately reduced. There is mild aortic regurgitation. There is moderate valvular aortic stenosis.JUNIOR 1.2-1.3 cm@ Mitral regurgitation is mild. There is mild tricuspid regurgitation.RVSP-30 mmof Hg. The IVC is normal in size and collapses >50% with inspiration. There is a trace pericardial effusion. No Vegetation or thrombus noted.
--- NOTE | 2018-10-21 00:46 | PN ---
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 Clinically, the patient is stable. Endoscopy done. The patient refused this time the barium contrast for a CT abdomen and pelvis with p.o. contrast. No other complaints. PHYSICAL EXAMINATION: VITAL SIGNS: Temperature 98.7, heart rate 74, blood pressure 155/70, respirations 18. HEAD AND NECK: Normal. No JVD. No thyromegaly. CHEST: Clear bilaterally. CARDIAC: First sound normal. Second sound diminished. Systolic ejection murmur. ABDOMEN: Soft, nontender. EXTREMITIES: Bilateral leg edema. NEUROLOGICAL: Normal. The patient has decreased range of motion of his back and gait disorder because of his chronic back pain. LABORATORY STUDIES: White count 8.3, hemoglobin went up to 9.3, hematocrit 33.2, platelets 371. Chemistries noted for sodium of 141, potassium 4.4, chloride 103, bicarb 28, BUN of 11, creatinine 0.7. Liver function test is normal except total bilirubin of 2.2. Other reports have been done including endoscopy which showed an adenocarcinoid tumor, no change since last visit. Also, the patient has echocardiography, 2D echo, which shows there is mildly impaired EF of 45%, [id number] right ventricular systolic function decreased, there is moderate valvular aortic stenosis of 1.2 to 1.3 cm. No vegetations or thrombus. Also, the patient had a venous Doppler of both lower extremities which showed no significant DVT. IMPRESSION AND PLAN: 1. Severe anemia, symptomatic with dyspnea status post 4 units of transfusion. We will continue to monitor complete blood counts and hemoglobin and hematocrit. 2. Moderate aortic stenosis, stable. No intervention. 3. Carcinoid tumor on endoscopy. We will get CT abdomen with p.o. and IV contrast to determine if any severity of the disease. 4. Edema lower extremities, stable. No deep venous thrombosis. Keep the legs elevated. 5. Chronic back pain. Continue Lyrica, tramadol, and Percocet. PLAN: Continue current therapy. Follow up clinically. The patient was seen by surgical team for further evaluation. Jim Kirk MD
[2018-10-21] MEDS: oxyCODONE 10 mg Immediate Release Tab PO SCH ×3 (06:51→22:27)
--- NOTE | 2018-10-21 06:52 | CP.PCM.PN ---
Subjective - Date & Time of Evaluation Date of Evaluation: 10/21/18 Time of Evaluation: 06:18 - Subjective Subjective: Awake, no distress Reason for consultation and follow up: Cardiac evaluation of shortness of breath, admitted for symptomatic anemia, post blood transfusion Seen and examined by me and Dr. Gregorio Objective - Vital Signs/Intake and Output Vital Signs (last 24 hours): Temp Pulse Resp BP Pulse Ox 98.2 F 81 19 125/79 94 L 10/21/18 00:01 10/21/18 02:00 10/21/18 00:01 10/21/18 00:01 10/21/18 00:01 Intake and Output: 10/20/18 10/21/18 18:59 06:59 Intake Total 1500 720 Output Total 1600 2200 Balance -100 -1480 - Medications Medications: Current Medications Amlodipine Besylate (Norvasc) 2.5 mg PO DAILY [facility] Last Admin: 10/20/18 13:16 Dose: 2.5 mg Finasteride (Proscar) 5 mg PO DAILY [facility] Last Admin: 10/20/18 13:16 Dose: 5 mg Furosemide (Lasix) 20 mg PO QOTHERDAY [facility] Last Admin: 10/20/18 13:15 Dose: 20 mg Home Med (Home Med) 1 unit PO DAILY [facility] Last Admin: 10/20/18 13:17 Dose: Not Given Home Med (Home Med) 1 unit PO DAILY [facility] Last Admin: 10/20/18 13:17 Dose: Not Given Hydroxyzine HCl (Atarax) 25 mg PO DAILY [facility] Last Admin: 10/20/18 13:14 Dose: 25 mg Lidocaine (Lidoderm) 1 ea TD DAILY [facility] Last Admin: 10/20/18 13:15 Dose: 1 ea Oxycodone HCl (Oxycodone Immediate Release Tab) 10 mg PO Q8H [facility] Last Admin: 10/20/18 22:07 Dose: 10 mg Pantoprazole Sodium (Protonix Inj) 40 mg IVP Q12 [facility] Last Admin: 10/20/18 22:08 Dose: 40 mg Pregabalin (Lyrica) 150 mg PO TID [facility] Last Admin: 10/20/18 22:07 Dose: 150 mg Tamsulosin HCl (Flomax) 0.4 mg PO DAILY [facility] Last Admin: 10/20/18 13:22 Dose: 0.4 mg Tramadol HCl (Ultram) 50 mg PO TID PRN PRN Reason: Pain, moderate (4-7) Last Admin: 10/20/18 22:10 Dose: 50 mg - Labs Labs: 10/20/18 07:00 10/20/18 07:00 PT 13.8 SECONDS (9.4-12.5) H 10/20/18 14:00 INR 1.24 10/20/18 14:00 - Constitutional Appears: Non-toxic, No Acute Distress - Head Exam Head Exam: NORMAL INSPECTION, NORMOCEPHALIC - Eye Exam Eye Exam: Normal appearance Pupil Exam: NORMAL ACCOMODATION - ENT Exam ENT Exam: Mucous Membranes Moist, Normal Exam - Respiratory Exam Respiratory Exam: Decreased Breath Sounds, Clear to Ausculation Bilateral, NORMAL BREATHING PATTERN - Cardiovascular Exam Cardiovascular Exam: REGULAR RHYTHM, +S1, +S2 - GI/Abdominal Exam GI & Abdominal Exam: Soft, Normal Bowel Sounds - Extremities Exam Extremities Exam: Full ROM Additional comments: 1+edema - Neurological Exam Neurological Exam: Alert, Awake, Oriented x3 - Psychiatric Exam Psychiatric exam: Normal Affect, Normal Mood - Skin Skin Exam: Dry, Normal Color, Warm Assessment and Plan - Assessment and Plan (Free Text) Assessment: A 77 year old male who came in to the ER due to shortness of breath on exertion for the past 5-6 days. History of hypertension, hyperlipidemia, carcinoid Tumor at [facility] (EGD on January 2017) refused surgical intervention, BPH, DVT,chronic anemia, chronic back pain (surgery 2013), severe spinal stenosis, back surgery with residual left leg numbness. He takes Tramadol, Oxycodone and lidocaine for pain. Low hemoglobin/hematocrit on admission, claimed to positive bloody stools. Transfused 4 units PRBC. Hemoglobin stabilized. Stress done prior to back surgery in 2013 showed normal results. Ruled out congestive heart failure. Admitted for symptomatic anemia.Echo done and showed LVEF 45 %, mild aortic regurgitation, moderate aortic valve stenosis JUNIOR 1.2-1.3 cm2, mild mitral /tricuspid regurgitation,RVSP 30 mmHg. no vegetation or thrombus. EGD done yesterday and showed gastritis and duodenal polyps. Hematology on consult. GI on consult. Cardiac status stable. Plan: No distress Cardiac status stable Hematology on consult Heart rate stable Blood pressure stable On Norvasc 2.5 mg daily,Proscar 5 mg daily, Lasix 20 mg every other day Flomax 0.4 mg daily Continue current treatment continue current medications Stable H/H, transfuse PRBC ad needed Discharge planning Will follow up Plan and treatment discussed with Dr. Gregorio
--- NOTE | 2018-10-21 09:58 | CP.PCM.PN ---
<Surya Beltrán - Last Filed: 10/21/18 13:27> Subjective - Date & Time of Evaluation Date of Evaluation: 10/21/18 Time of Evaluation: 06:00 - Subjective Subjective: Surya Beltrán PGY2 Heme/Onc Progress Note for Dr. Treadwell Patient seen and evaluated bedside in AM. No acute issues overnight. Patient will go for Colonoscopy today. Denies any complaints. Objective - Vital Signs/Intake and Output Vital Signs (last 24 hours): Temp Pulse Resp BP Pulse Ox 98.4 F 116 H 20 107/62 95 10/21/18 06:00 10/21/18 06:00 10/21/18 06:00 10/21/18 06:00 10/21/18 06:00 Intake and Output: 10/21/18 10/21/18 06:59 18:59 Intake Total 2400 2000 Output Total 2400 600 Balance 0 1400 - Medications Medications: Current Medications Amlodipine Besylate (Norvasc) 2.5 mg PO DAILY [facility] Last Admin: 10/20/18 13:16 Dose: 2.5 mg Finasteride (Proscar) 5 mg PO DAILY [facility] Last Admin: 10/20/18 13:16 Dose: 5 mg Furosemide (Lasix) 20 mg PO QOTHERDAY [facility] Last Admin: 10/20/18 13:15 Dose: 20 mg Home Med (Home Med) 1 unit PO DAILY [facility] Last Admin: 10/20/18 13:17 Dose: Not Given Home Med (Home Med) 1 unit PO DAILY [facility] Last Admin: 10/20/18 13:17 Dose: Not Given Hydroxyzine HCl (Atarax) 25 mg PO DAILY [facility] Last Admin: 10/20/18 13:14 Dose: 25 mg Lidocaine (Lidoderm) 1 ea TD DAILY [facility] Last Admin: 10/20/18 13:15 Dose: 1 ea Ondansetron HCl (Zofran Inj) 4 mg IVP Q6H PRN PRN Reason: Nausea/Vomiting Oxycodone HCl (Oxycodone Immediate Release Tab) 10 mg PO Q8H [facility] Last Admin: 10/21/18 06:51 Dose: 10 mg Pantoprazole Sodium (Protonix Inj) 40 mg IVP Q12 [facility] Last Admin: 10/20/18 22:08 Dose: 40 mg Pregabalin (Lyrica) 150 mg PO TID [facility] Last Admin: 10/20/18 22:07 Dose: 150 mg Tamsulosin HCl (Flomax) 0.4 mg PO DAILY [facility] Last Admin: 10/20/18 13:22 Dose: 0.4 mg Tramadol HCl (Ultram) 50 mg PO TID PRN PRN Reason: Pain, moderate (4-7) Last Admin: 10/20/18 22:10 Dose: 50 mg - Labs Labs: 10/20/18 07:00 10/20/18 07:00 PT 13.8 SECONDS (9.4-12.5) H 10/20/18 14:00 INR 1.24 10/20/18 14:00 - Constitutional Appears: Non-toxic, No Acute Distress - Head Exam Head Exam: ATRAUMATIC, NORMAL INSPECTION, NORMOCEPHALIC - Eye Exam Eye Exam: Normal appearance - ENT Exam ENT Exam: Mucous Membranes Moist - Respiratory Exam Respiratory Exam: Clear to Ausculation Bilateral, NORMAL BREATHING PATTERN - Cardiovascular Exam Cardiovascular Exam: REGULAR RHYTHM - GI/Abdominal Exam GI & Abdominal Exam: Soft. absent: Tenderness Assessment and Plan - Assessment and Plan (Free Text) Plan: Anemia with history for carcinoid -Hgb of 5.0 on admission -Hgb currently 9.0 -s/p 4 units PRBC -5-HIAA and tumor markers pending -Octreotide Scan pending read -CT ChestAbdPelvis pending -GI consulted, follow recs -Monitor H&H, transfuse as needed -EGD from AM shows gastric mucosal atrophy, biopsied. large submucosal nodule in duodenum, biopsied, no change in size of the lesion -plan for colonoscopy today <Sindy Treadwell P - Last Filed: 10/22/18 12:17> Objective - Vital Signs/Intake and Output Vital Signs (last 24 hours): Temp Pulse Resp BP Pulse Ox 98 F 90 20 142/68 93 L 10/22/18 06:00 10/22/18 06:00 10/22/18 06:00 10/22/18 11:06 10/22/18 06:00 Intake and Output: 10/22/18 10/22/18 06:59 18:59 Intake Total 360 Balance 360 - Medications Medications: Current Medications Amlodipine Besylate (Norvasc) 2.5 mg PO DAILY [facility] Last Admin: 10/22/18 11:06 Dose: 2.5 mg Finasteride (Proscar) 5 mg PO DAILY [facility] Last Admin: 10/22/18 11:06 Dose: 5 mg Furosemide (Lasix) 20 mg PO QOTHERDAY [facility] Last Admin: 10/22/18 11:06 Dose: 20 mg Home Med (Home Med) 1 unit PO DAILY [facility] Last Admin: 10/21/18 10:06 Dose: Not Given Home Med (Home Med) 1 unit PO DAILY [facility] Last Admin: 10/21/18 10:06 Dose: Not Given Hydroxyzine HCl (Atarax) 25 mg PO DAILY [facility] Last Admin: 10/21/18 11:11 Dose: Not Given Lidocaine (Lidoderm) 1 ea TD DAILY [facility] Last Admin: 10/22/18 11:05 Dose: 1 ea Ondansetron HCl (Zofran Inj) 4 mg IVP Q6H PRN PRN Reason: Nausea/Vomiting Oxycodone HCl (Oxycodone Immediate Release Tab) 10 mg PO Q8H [facility] Last Admin: 10/22/18 06:22 Dose: 10 mg Pantoprazole Sodium (Protonix Inj) 40 mg IVP Q12 [facility] Last Admin: 10/21/18 22:27 Dose: 40 mg Pregabalin (Lyrica) 150 mg PO TID [facility] Last Admin: 10/22/18 11:05 Dose: 150 mg Tamsulosin HCl (Flomax) 0.4 mg PO DAILY [facility] Last Admin: 10/22/18 11:06 Dose: 0.4 mg Tramadol HCl (Ultram) 50 mg PO TID PRN PRN Reason: Pain, moderate (4-7) Last Admin: 10/22/18 02:00 Dose: 50 mg - Labs Labs: 10/21/18 11:00 10/21/18 11:00 PT 13.8 SECONDS (9.4-12.5) H 10/20/18 14:00 INR 1.24 10/20/18 14:00 Attending/Attestation - Attestation I have personally seen and examined this patient.: Yes I have fully participated in the care of the patient.: Yes I have reviewed all pertinent clinical information, including history, physical exam and plan: Yes
[2018-10-21] MEDS: AMITIZA 24 MG PO SCH (10:06)
[2018-10-21] MEDS: AVODART 0.5 MG PO SCH (10:06)
[2018-10-21] MEDS: Lidocaine 5% Patch TD SCH (11:05)
[2018-10-21 11:12] LABS: BASO # 0.04 K/mm3 (0.0-2.0); BASO % 0.5 % (0.0-3.0); EOS # 0.3 (0.0-0.7); EOS % 3.8 % (1.5-5.0); LYMPH # 1.4 (1.2-3.4); LYMPH % 15.8 % (22.0-35.0); MEAN CELL VOLUME 70.1 fl (80.0-105.0); MEAN CORPUSCULAR HEMOGLOBIN 19.1 pg (25.0-35.0); MEAN CORPUSCULAR HGB CONC 27.2 g/dl (31.0-37.0); MEAN PLATELET VOLUME 9.6 fl (7.0-11.0); MONO # 0.8 (0.1-0.6); MONO % 9.4 % (1.0-6.0); RBC 4.72 10^6/uL (3.5-6.1); RED CELL DISTRIBUTION WIDTH 28.8 % (11.5-14.5); WHITE BLOOD COUNT 8.6 10^3/uL (4.5-11.0)
[2018-10-21 11:34] LABS: ALB/GLOB RATIO 1.1 (1.1-1.8); ALBUMIN 3.8 g/dL (3.0-4.8); ALT/SGPT 12 U/L (7-56); AST/SGOT 31 U/L (17-59); BLOOD UREA NITROGEN 12 mg/dL (7-21); CALCIUM 8.5 mg/dL (8.4-10.5); GFR NON-AFRICAN AMERICAN > 60
--- NOTE | 2018-10-21 12:59 | CP.PCM.PN ---
Subjective - Date & Time of Evaluation Date of Evaluation: 10/21/18 Time of Evaluation: 07:00 - Subjective Subjective: GENERAL SURGERY PROGRESS NOTE FOR DR. EPPS Patient seen and examined at bedside. He had EGD yesterday and is drinking bowel prep for colonoscopy. He states that he has pain and numbness in his feet but denies abdominal pain. He is tolerating diet, denies nausea or vomiting. Objective - Vital Signs/Intake and Output Vital Signs (last 24 hours): Temp Pulse Resp BP Pulse Ox 97.1 F L 75 18 119/71 96 10/21/18 12:00 10/21/18 12:00 10/21/18 12:00 10/21/18 12:00 10/21/18 09:30 Intake and Output: 10/21/18 10/21/18 06:59 18:59 Intake Total 2400 2000 Output Total 2400 600 Balance 0 1400 - Medications Medications: Current Medications Amlodipine Besylate (Norvasc) 2.5 mg PO DAILY [facility] Last Admin: 10/21/18 11:11 Dose: Not Given Finasteride (Proscar) 5 mg PO DAILY [facility] Last Admin: 10/21/18 11:12 Dose: Not Given Furosemide (Lasix) 20 mg PO QOTHERDAY [facility] Last Admin: 10/20/18 13:15 Dose: 20 mg Home Med (Home Med) 1 unit PO DAILY [facility] Last Admin: 10/21/18 10:06 Dose: Not Given Home Med (Home Med) 1 unit PO DAILY [facility] Last Admin: 10/21/18 10:06 Dose: Not Given Hydroxyzine HCl (Atarax) 25 mg PO DAILY [facility] Last Admin: 10/21/18 11:11 Dose: Not Given Lidocaine (Lidoderm) 1 ea TD DAILY [facility] Last Admin: 10/21/18 11:05 Dose: 1 ea Ondansetron HCl (Zofran Inj) 4 mg IVP Q6H PRN PRN Reason: Nausea/Vomiting Oxycodone HCl (Oxycodone Immediate Release Tab) 10 mg PO Q8H [facility] Last Admin: 10/21/18 06:51 Dose: 10 mg Pantoprazole Sodium (Protonix Inj) 40 mg IVP Q12 [facility] Last Admin: 10/21/18 11:05 Dose: 40 mg Pregabalin (Lyrica) 150 mg PO TID [facility] Last Admin: 10/21/18 10:06 Dose: Not Given Tamsulosin HCl (Flomax) 0.4 mg PO DAILY [facility] Last Admin: 10/21/18 11:10 Dose: Not Given Tramadol HCl (Ultram) 50 mg PO TID PRN PRN Reason: Pain, moderate (4-7) Last Admin: 10/20/18 22:10 Dose: 50 mg - Labs Labs: 10/21/18 11:00 10/21/18 11:00 PT 13.8 SECONDS (9.4-12.5) H 10/20/18 14:00 INR 1.24 10/20/18 14:00 - Constitutional Appears: Non-toxic, No Acute Distress - Head Exam Head Exam: ATRAUMATIC, NORMAL INSPECTION - Eye Exam Eye Exam: EOMI, Normal appearance - Respiratory Exam Respiratory Exam: NORMAL BREATHING PATTERN. absent: Respiratory Distress - Cardiovascular Exam Cardiovascular Exam: +S1, +S2 - GI/Abdominal Exam GI & Abdominal Exam: Soft. 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 Surgery consulted for anemia and carcinoid tumor. 10/20 EGD: large submucosal duodenal nodule, size unchanged from last endoscopy Plan: - FU 5-HIAA urine test - Tumor markers WNL - FU ocretotide scan - FU CT Chest/ab/pelvis (patient refused yesterday, agrees to do tomorrow) - FU colonoscopy - Monitor H & H (hgb now stable) - Hematology oncology following - Further recs pending imaging and testing results Discussed plan with Dr. Tee Barahona PGY-4
[2018-10-21] MEDS ORDERED: Propofol 10 mg/ml Inj (20 ML) ONE (15:04)
[2018-10-21] MEDS ORDERED: Midazolam 2 MG/2 ML VIAL ONE ×2 (15:10→15:34)
[2018-10-21] MEDS ORDERED: Sodium Chloride 0.9% 1,000 ML IV SCH (15:15)
[2018-10-21] MEDS ORDERED: Etomidate 20 mg/10ml Inj IV ONE (15:17)
--- NOTE | 2018-10-21 16:16 | NM ---
Date of service: 10/21/2018 PROCEDURE: Octreotide scan. HISTORY: Duodenal carcinoid tumor COMPARISON: 11/26/2016. Octreotide scan TECHNIQUE: 6 mCi indium 111 octreotide scan administered intravenously. FINDINGS: No suspicious indium avid structures identified at 24:00 hours. Particular attention directed to the upper abdomen/duodenal region. Expected uptake in the liver, spleen, kidneys and urinary bladder. IMPRESSION: Negative study.No significant interval change compared to the prior examination(s).
[2018-10-21 22:41] VITALS: RESP 20
[2018-10-22] MEDS: oxyCODONE 10 mg Immediate Release Tab PO SCH (06:22)
--- NOTE | 2018-10-22 08:44 | CP.PCM.PN ---
Subjective - Date & Time of Evaluation Date of Evaluation: 10/22/18 Time of Evaluation: 07:00 - Subjective Subjective: GENERAL SURGERY PROGRESS NOTE FOR DR. EPPS Patient seen and examined at bedside. He is tolerating his diet, denies nausea or vomiting. Denies abdominal pain. Had colonoscopy yesterday. Objective - Vital Signs/Intake and Output Vital Signs (last 24 hours): Temp Pulse Resp BP Pulse Ox 98 F 90 20 150/65 93 L 10/22/18 06:00 10/22/18 06:00 10/22/18 06:00 10/22/18 06:00 10/22/18 06:00 Intake and Output: 10/22/18 10/22/18 06:59 18:59 Intake Total 360 Balance 360 - Medications Medications: Current Medications Amlodipine Besylate (Norvasc) 2.5 mg PO DAILY [facility] Last Admin: 10/21/18 11:11 Dose: Not Given Finasteride (Proscar) 5 mg PO DAILY [facility] Last Admin: 10/21/18 11:12 Dose: Not Given Furosemide (Lasix) 20 mg PO QOTHERDAY [facility] Last Admin: 10/20/18 13:15 Dose: 20 mg Home Med (Home Med) 1 unit PO DAILY [facility] Last Admin: 10/21/18 10:06 Dose: Not Given Home Med (Home Med) 1 unit PO DAILY [facility] Last Admin: 10/21/18 10:06 Dose: Not Given Hydroxyzine HCl (Atarax) 25 mg PO DAILY [facility] Last Admin: 10/21/18 11:11 Dose: Not Given Lidocaine (Lidoderm) 1 ea TD DAILY [facility] Last Admin: 10/21/18 11:05 Dose: 1 ea Ondansetron HCl (Zofran Inj) 4 mg IVP Q6H PRN PRN Reason: Nausea/Vomiting Oxycodone HCl (Oxycodone Immediate Release Tab) 10 mg PO Q8H [facility] Last Admin: 10/22/18 06:22 Dose: 10 mg Pantoprazole Sodium (Protonix Inj) 40 mg IVP Q12 [facility] Last Admin: 10/21/18 22:27 Dose: 40 mg Pregabalin (Lyrica) 150 mg PO TID [facility] Last Admin: 10/21/18 17:05 Dose: 150 mg Tamsulosin HCl (Flomax) 0.4 mg PO DAILY [facility] Last Admin: 10/21/18 11:10 Dose: Not Given Tramadol HCl (Ultram) 50 mg PO TID PRN PRN Reason: Pain, moderate (4-7) Last Admin: 10/22/18 02:00 Dose: 50 mg - Labs Labs: 10/21/18 11:00 10/21/18 11:00 PT 13.8 SECONDS (9.4-12.5) H 10/20/18 14:00 INR 1.24 10/20/18 14:00 - Constitutional Appears: Non-toxic, No Acute Distress - Head Exam Head Exam: ATRAUMATIC, NORMAL INSPECTION - Eye Exam Eye Exam: EOMI, Normal appearance - Respiratory Exam Respiratory Exam: NORMAL BREATHING PATTERN. absent: Respiratory Distress - Cardiovascular Exam Cardiovascular Exam: +S1, +S2 - GI/Abdominal Exam GI & Abdominal Exam: Soft. 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 Surgery consulted for anemia and carcinoid tumor. 10/20 EGD: large submucosal duodenal nodule, size unchanged from last endoscopy 10/21: Octreotide scan: negative 10/21 colonoscopy: internal hemorrhoids Plan: - FU duodenal mass biopsy from recent EGD - FU 5-HIAA urine test - FU CT Chest/ab/pelvis (patient refused yesterday and day prior, agrees to do today) - Monitor H & H (hgb has been stable past few days) - Hematology oncology following - Further recs pending imaging and testing results Discussed plan with Dr. Tee Barahona PGY-4
[2018-10-22] MEDS ORDERED: Iohexol 350 MG/100 ML VIAL ONE (10:14)
[2018-10-22] MEDS: Lidocaine 5% Patch TD SCH (11:05)
--- NOTE | 2018-10-22 11:16 | CT ---
Date of service: 10/22/2018 PROCEDURE: CT Chest, Abdomen and Pelvis with intravenous contrast HISTORY: R/O NEOPLASM COMPARISON: CT chest dated 11/25/2016; CT scan of the abdomen and pelvis dated 08/21/2016. TECHNIQUE: IV dose administered: 100 mL Omnipaque 350 Radiation dose: Total exam DLP = 1302.71 mGy-cm. This CT exam was performed using one or more of the following dose reduction techniques: Automated exposure control, adjustment of the mA and/or kV according to patient size, and/or use of iterative reconstruction technique. FINDINGS: CT CHEST WITH CONTRAST: LUNGS: Chronic interstitial changes. 8 mm posterior right lower lobe nodule (series 3, image 50). MEDIASTINUM: Unremarkable. Normal caliber aorta and pulmonary arterial trunk. No aortic dissection. Cardiomegaly. Coronary arterial and valvular calcifications. LYMPH NODES: Unremarkable. PLEURA: Unremarkable. No pneumothorax. No pleural fluid. BONES: Unremarkable. OTHER FINDINGS: None. CT ABDOMEN AND PELVIS: LIVER: Hepatic steatosis. Stable 1.1 cm anterior subcapsular cyst. No gross lesion or ductal dilatation. GALLBLADDER AND BILE DUCTS: Unremarkable. PANCREAS: Unremarkable. No gross lesion or ductal dilatation. SPLEEN: Unremarkable. ADRENALS: Stable or decreased size of heterogeneous left adrenal lesion measuring 3.4 x 4.2 cm with areas of fat density and calcifications re-identified. KIDNEYS AND URETERS: Right lower pole cortical scarring. Left lower pole 2.4 cm cyst. No hydronephrosis. No solid mass. VASCULATURE: Infrarenal inferior vena cava filter re demonstrated. Diffuse aortic atherosclerotic calcification. Stable appearance of questionable focal dissections involving the bilateral common iliac arteries and proximal left external iliac artery. No aortic aneurysm. BOWEL: Small hiatal hernia. Colonic diverticulosis. No obstruction. No gross mural thickening. APPENDIX: Normal appendix. PERITONEUM: Small right fat containing inguinal hernia. No free fluid. No free air. LYMPH NODES: Unremarkable. No enlarged lymph nodes. BLADDER: Unremarkable. REPRODUCTIVE: Prostatomegaly. BONES: Stable posterior fusion T9-L4. Multilevel vertebral compression deformities most severe at T11, L2 and L3. Grade 1 anterolisthesis of L4 on L5. No obvious acute fracture. OTHER FINDINGS: None. IMPRESSION: No acute finding above in the chest, abdomen or pelvis. New 8 mm posterior right lower lobe nodule. Follow-up is advised. Alternatively, PET-CT can be obtained for further evaluation. Stable left adrenal lesion. Multiple additional stable findings as above.
[2018-10-22 15:50] VITALS: BP 135/71; PULSE 72; TEMP 98.6; O2SAT 97
--- NOTE | 2018-10-22 18:00 | PN ---
DATE: 10/22/2018 This is Mr. Aren Murray's hospital visit for Dr. Treadwell. 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 The patient having hemoglobin 5.0 on admission 4 days prior. He was subsequently transfused 4 units packed red blood cells total with a hemoglobin yesterday of 9.0, it will be repeated in the morning. His other testing to date including an octreotide scan which was essentially negative along with a endoscopy, performed by Dr. Price showing grade 2 hemorrhoids, diverticulosis, redundant sigmoid colon with an EGD, however showing a 15 mm ulcerated duodenal polypoid lesion along with gastritis and other duodenal polyps. I believe that this ulcerated duodenal polyp is that of carcinoid with distal source of the bleeding. The patient reports that hemorrhoids were responsible for the bleeding. At present, he is no acute distress, anxious for discharge as his uatsdin belief is that of Wednesday being tomorrow and that he would like to be home with his family. However, he is recommended that he had a surgical evaluation with considerations for procedure to address this finding. He is otherwise no acute distress. OBJECTIVE/PHYSICAL EXAMINATION: VITAL SIGNS: Temperature 98, pulse 90, respirations 20, blood pressure 142/68 and pulse ox 93% HEENT: Unremarkable. NECK: Supple. HEART: Regular rate. LUNGS: Clear. ABDOMEN: Obese, soft and nontender. EXTREMITIES: No edema. SKIN: Warm and dry. NEUROLOGIC: Awake and alert. LABORATORY DATA: The patient's labs were done yesterday showing white blood cell count of 8.6, hemoglobin 9.0, status post transfusion of 4 units of packed cells for hemoglobin 5.0 3 days prior, hematocrit 33.1 and platelet count of 363,000. His INR 2 days ago was 1.24 with a metabolic panel showing a T-bili of 1.5 down from 2.2 earlier, these tests are from yesterday. The patient also had tumor marking showing a CEA value of 1.0, CA 19-9 of 10.4 with a CA-125 testing of less than 5.5, with a TSH of 1.06. This CA-125 had been an error. The patient has a CT scan of the chest, abdomen, and pelvis done yesterday after he was convinced of the need for it to be done. Impression showing no acute findings in above the chest, abdomen, and pelvis, new 8 mm posterior right lower lobe nodule. Followup is advised, alternative PET can be obtained for further evaluation is stable, left adrenal lesion, multiple additional stable findings as above. In 07/2016, the patient did have a tissue diagnosed of biopsy of the duodenum bulb showing well differentiate neuroendocrine neoplasm carcinoid tumor. ASSESSMENT: Severe acute symptomatic anemia requiring transfusion of 4 units packed red blood cells, known polypoid lesion, a duodenal tumor carcinoid, chronic back pain, degenerative joint disease, hypertension, peripheral vascular disease, benign prosthetic hyperplasia, constipation, sciatica, and hemorrhoids, grade 2. PLAN: After conversation with Dr. Treadwell is to recommend surgical procedure as per Dr. Oliveira along with continue monitoring as above and continuation of his medication. This is a complex patient with a comprehensive medically necessary and appropriate visit carried out in excess of 40 minutes with the patient questions answered to his satisfaction. Jai Shaw MD
--- NOTE | 2018-10-22 21:00 | PN ---
DATE: 10/21/2018 SUBJECTIVE: The patient is stable, could not get a CT of the abdomen and pelvis with p.o. and on IV contrast. Dr. Isaias Oliveira is the surgical Oncology on the case. The patient has no new complaints. PHYSICAL EXAMINATION: VITAL SIGNS: Temperature is 98, heart rate 63, blood pressure 122/70, respirations 16, and 100% saturation. HEAD AND NECK: Normal. No JVD and no thyromegaly. CHEST: Clear bilaterally. CARDIAC: First sound and second sound normal, systolic murmur. ABDOMEN: Soft and nontender. EXTREMITIES: Mild edema. NEUROLOGIC: Normal. BACK: Decreased range of motion and ambulation. IMPRESSION AND PLAN: 1. Acute gastrointestinal bleed, possibly carcinoid related. The patient had upper endoscopy shows carcinoid, no change in size, still waiting for CT of the abdomen and pelvis with intravenous contrast. 2. Moderate aortic stenosis with decreased ejection fraction. 3. Anemia, status post transfusion. Hemoglobin 9, hematocrit 33.1, stable. Continue Protonix. 4. Chronic back pain. Continue pain medication, Lyrica, oxycodone, and tramadol. 5. Bilateral lower extremity, negative Doppler. Continue Lasix. Continue current therapy. Jim Kirk MD
--- NOTE | 2018-10-22 23:26 | CP.PCM.PN ---
Subjective - Date & Time of Evaluation Date of Evaluation: 10/22/18 Time of Evaluation: 08:15 - Subjective Subjective: No complaints of abdominal pain tolerating clear diet. Patient was going to CAT scan at the time of examination. Objective - Vital Signs/Intake and Output Vital Signs (last 24 hours): Temp Pulse Resp BP Pulse Ox 98.6 F 72 20 135/71 97 10/22/18 14:00 10/22/18 14:00 10/22/18 14:00 10/22/18 14:00 10/22/18 14:00 - Labs Labs: 10/21/18 11:00 10/21/18 11:00 PT 13.8 SECONDS (9.4-12.5) H 10/20/18 14:00 INR 1.24 10/20/18 14:00 - Head Exam Head Exam: ATRAUMATIC, NORMOCEPHALIC - Eye Exam Eye Exam: EOMI, PERRL Pupil Exam: NORMAL ACCOMODATION - ENT Exam ENT Exam: Mucous Membranes Moist, Normal Oropharynx - Neck Exam Neck Exam: Full ROM, Normal Inspection. absent: Lymphadenopathy - Respiratory Exam Respiratory Exam: Clear to Ausculation Bilateral. absent: Accessory Muscle Use, Respiratory Distress - Cardiovascular Exam Cardiovascular Exam: +S1, +S2. absent: JVD - GI/Abdominal Exam GI & Abdominal Exam: Soft. absent: Tenderness, Mass - Neurological Exam Neurological Exam: Alert, Awake, Oriented x3 Assessment and Plan - Assessment and Plan (Free Text) Assessment: Duodenal carcinoid repeat EGD appears the size of the cause is seen. Patient also has 2 small subepithelial lesions in the duodenum in the past the biopsy showed carcinoid. Iron deficiency anemia severe liver transfusion hemoglobin stable the source is unclear patient did have colonoscopy showed a large hemorrhoids and patient did give history of recurrent episodes of bleeding this could be contributory factor. CT scan done yearly late was reviewed. Is also reported as lung nodule. Continue to be followed up Lipase reasonable to consider capsule endoscopy before the surgical evaluation. Before the surgery. The request for Netspot scan and capsule endoscopy as an outpatient Discussed with Dr. Treadwell and also with the patient's son who is a physician at length earlier
--- NOTE | 2018-10-25 06:17 | DS ---
HISTORY OF PRESENT ILLNESS: The patient was admitted with dyspnea, found to be severely anemic. The patient received 4 units of packed RBC and started feeling better. He did have upper endoscopy as the patient has a history of carcinoid edema and it looks like adrenal change. The patient was seen by also surgical consult, Dr. Isaias Oliveira. The patient was seen by Dr. Treadwell also. The patient had endoscopy, octreotide scan, and CT of abdomen and pelvis. Lab results; no acute findings, there is an 8 mm posterior right lower lobe nodule. Follow up is recommended, advised PET scan for further evaluation, 8 mm nodule. Stable left adrenal lesions, multiple additional stable findings in the small right inguinal hernia and enlarged prostate. The other one octreotide scan has been made by Dr. Price, and it shows no suspicious structure, negative study. IMPRESSION AND PLAN: 1. Acute severe anemia. 2. Carcinoid duodenal tumor. 3. Lung nodule, need followup. 4. Moderate aortic stenosis with decreased ejection fraction. 5. Iron deficiency anemia. 6. Chronic severe back pain. 7. Constipation. I will discharge the patient home to be followed up as outpatient by Dr. Treadwell, Dee, and Surgical Team for lung nodule. We will follow up as outpatient. We will discuss with Dr. Treadwell. Jim Kirk MD
== END 2018-10-22 16:50 | disposition home or self-care (01) | DRG 812 ==
LOC: ED 15:01 → ERH 18:20 → 2RNO 21:27 → 5RNO 10-21 16:47
PROVIDERS: ADMIT Internal Medicine; ATTEND Internal Medicine
PROC: 30233N1 Transfusion of Nonautologous Red Blood Cells into Peripheral Vein, Percutaneous Approach (ICD-10-PCS; 2018-10-18)
PROC: 0DB98ZX Excision of Duodenum, Via Natural or Artificial Opening Endoscopic, Diagnostic (ICD-10-PCS; 2018-10-20)
PROC: 0DB78ZX Excision of Stomach, Pylorus, Via Natural or Artificial Opening Endoscopic, Diagnostic (ICD-10-PCS; principal; 2018-10-20 09:15)
PROC: 0DJD8ZZ Inspection of Lower Intestinal Tract, Via Natural or Artificial Opening Endoscopic (ICD-10-PCS; 2018-10-21)
DX: D50.9 Iron deficiency anemia, unspecified (principal); C7A.010 Malignant carcinoid tumor of the duodenum; Q43.8 Other specified congenital malformations of intestine; R06.02 Shortness of breath; I10 Essential (primary) hypertension; E78.5 Hyperlipidemia, unspecified; R20.0 Anesthesia of skin; R20.2 Paresthesia of skin; M79.89 Other specified soft tissue disorders; Z79.899 Other long term (current) drug therapy; E27.9 Disorder of adrenal gland, unspecified; I35.0 Nonrheumatic aortic (valve) stenosis; N40.0 Benign prostatic hyperplasia without lower urinary tract symptoms; G89.29 Other chronic pain; M54.9 Dorsalgia, unspecified; Z95.828 Presence of other vascular implants and grafts; Z86.718 Personal history of other venous thrombosis and embolism; K57.90 Diverticulosis of intestine, part unspecified, without perforation or abscess without bleeding; R60.0 Localized edema; K31.7 Polyp of stomach and duodenum; K29.70 Gastritis, unspecified, without bleeding; K64.1 Second degree hemorrhoids; K44.9 Diaphragmatic hernia without obstruction or gangrene; E78.00 Pure hypercholesterolemia, unspecified; I08.3 Combined rheumatic disorders of mitral, aortic and tricuspid valves; I73.9 Peripheral vascular disease, unspecified; K59.00 Constipation, unspecified; M54.30 Sciatica, unspecified side; Z80.3 Family history of malignant neoplasm of breast; Z91.19 Patient's noncompliance with other medical treatment and regimen; K29.50 Unspecified chronic gastritis without bleeding; Z77.22 Contact with and (suspected) exposure to environmental tobacco smoke (acute) (chronic)